=== PATIENT | male | born 1940 | race Caucasian/White ===

== ENCOUNTER → 2019-05-16 19:15 | Outpatient (ROUT) | payer MEDICARE, OTHER, SELFPAY ==
[2019-05-16 19:32] LABS: Bacteria Urine None Seen; RBC Urine None Seen (0-5/HPF)
[2019-05-16 19:39] LABS: Add Manual Diff / Slide Review NO; Basophils Absolute Auto 100 /uL (0-100); Basophils Percent Auto 0.6 % (0-2); Eosinophils Absolute Auto 300 /uL (0-450); Eosinophils Percent Auto 3.1 % (2-4); Hematocrit 41.1 % (41-53); Hemoglobin 13.8 g/dL (13.5-17.5); Lymphocytes Absolute Auto 2200 /uL (1100-4500); Lymphocytes Percent Auto 26.3 % (25-40); Mean Corpuscular HGB Conc 33.6 % (30-36); Mean Corpuscular Hemoglobin 29.9 PG (26-34); Monocytes Absolute Auto 700 /uL (0-900); Monocytes Percent Auto 8.7 % (3-14); Neutrophils Absolute Auto 5100 /uL (1500-7000); Neutrophils Percent Auto 61.3 % (50-75); Platelet Count 179 X10^3/uL (150-400); Red Blood Cell Count 4.62 X10^6/uL (4.5-5.9); Red Cell Distribution Width 14.9 % (11.6-14.8); White Blood Cell Count 8.4 X10^3/uL (4.5-11.0)
[2019-05-16 19:47] LABS: Alanine Aminotransferase 71 IU/L (21-72); Albumin 4.1 g/dL (3.5-5.0); Albumin Globulin Ratio 1.2 (1.0-2.8); Alkaline Phosphatase 65 U/L (38-126); Aspartate Aminotransferase 60 IU/L (17-59); Bilirubin Total 0.5 mg/dL (0.2-1.3); Blood Urea Nitrogen 14 mg/dL (9-20); Calcium 9.9 mg/dL (8.4-10.2); Carbon Dioxide 29 mmol/L (22-32); Chloride 102 mmol/L (98-107); Estimated Glomerular Filt Rate > 60.0 mL/min (>60); Globulin 3.3 g/dL (1.7-4.1); Glucose 109 mg/dL (80-110); HEMOLYSIS < 15 (0-50); Potassium 4.5 mmol/L (3.4-5.1); Sodium 139 mmol/L (137-145); Total Protein 7.4 g/dL (6.3-8.2)
[2019-05-16 19:50] LABS: Hemoglobin A1C% w Est Avg Glu 6.7 % (4.0-6.0)
[2019-05-16 19:57] LABS: Appearance Urine UA CLEAR; Bilirubin Urine UA NEGATIVE (NEGATIVE); Color Urine UA YELLOW; Glucose Urine UA NEGATIVE (Negative); Ketones Urine UA NEGATIVE (NEGATIVE); Leukocyte Esterase Urine UA NEGATIVE (NEGATIVE); Nitrite Urine UA NEGATIVE (Negative); Occult Blood Urine UA NEGATIVE (Negative); Protein Urine UA NEGATIVE (Negative); Urobilinogen Urine UA 0.2 E.U./dL (0.2); pH Urine UA 6.5 (4.5-8.0)
[2019-05-16 20:02] LABS: Culture Indicated Urine Cult Not Indicated; Squamous Epithelial Cell Urine 0-1 /HPF (0-5/HPF); WBC Urine 0-1/HPF (0-5/HPF)
[2019-05-16 20:11] LABS: Creatinine Urine Random 110.4 mg/dL
[2019-05-16 20:15] LABS: Microalbumi Creatinin Ratio Ur 16.3 ug/mg CR (<30); Microalbumin Urine Random 1.8 mg/dL (0-1.6)
[2019-05-16 20:17] LABS: TSH w/ Reflex to FT4 2.12 uIU/mL (0.47-4.68)
[2019-05-16 21:14] LABS: B Type Natriuretic Peptide < 100 (<100)
== END ==
PROVIDERS: Family Provider Internal Medicine; PCP Internal Medicine; Visit Provider Internal Medicine
DX: E21.0 Primary hyperparathyroidism (principal); R06.09 Other forms of dyspnea; E11.9 Type 2 diabetes mellitus without complications; I10 Essential (primary) hypertension; F33.9 Major depressive disorder, recurrent, unspecified
CPT/HCPCS: 80053; 81001; 82043; 82570; 83036; 83880; 84443; 85025

== ENCOUNTER → 2019-05-31 14:07 | Outpatient (CLI) | payer MEDICARE, OTHER, SELFPAY ==
--- NOTE | 2019-05-31 | DI.ECHO.S_ITS ---
[facility] +---------+ [facility] +---------+ : : [address] : [address] : : : : [id number] : : : : Phone: [phone] Echocardiogram Report + + :Name: EUGENIA BRANDON Study Date: 05/31/2019 Height: 69 in : :[facility] Exam Location: [facility] Weight: 250 lb : : Gender: Male BSA: 2.3 m2 : :: 1940 Age: 79 yrs BP: 122/72 mmHg: :Reason For Study: DYSPNEA : : Performed By: Dagoberto Post : :Referring: REBA JEFFERY L : + + Interpretation Summary Left ventricular systolic function is normal without focal wall motion abnormalities with the ejection fraction visually estimated to be 60-65% and appears slightly less dynamic compared to the previous study. Left ventricular wall thickness is borderline increased. Diastolic parameters suggest a relaxation abnormality of the left ventricle, consistent with probable normal filling pressures. The right ventricle is mildly dilated but systolic function is normal and appears slightly larger compared to the previous study. The right ventricular systolic pressure is estimated to be at least 29 mmHg based on an estimated right atrial pressure of 3 mm Hg, and is likely unchanged compared to the previous study. Both atria are normal in size and are unchanged compared to the previous study. There is no significant valvular heart disease. The ascending aorta is mildly enlarged but is unchanged compared to the previous study. Procedure: A two-dimensional transthoracic echocardiogram with color flow and Doppler was performed. The study quality was technically adequate. Comparison is made with the echocardiogram of 02/06/16. The patient was in normal sinus rhythm during the exam. The patient had occasional PVCs during the exam. Left Ventricle: The left ventricle is normal in size. Left ventricular wall thickness is borderline increased. Left ventricular systolic function is normal without focal wall motion abnormalities. The ejection fraction is estimated to be 60-65%. This is slightly less dynamic compared to the previous study. Diastolic parameters suggest a relaxation abnormality of the left ventricle, consistent with probable normal filling pressures. Right Ventricle: The right ventricle is mildly dilated. The right ventricular systolic function is normal. This is slightly larger compared to the previous study. Atria: Both atria are normal in size. This is unchanged compared to the previous study. The interatrial septum is intact with no evidence for an atrial septal defect. Mitral Valve: There is mild mitral annular calcification. The mitral valve is normal in structure and function. There is trace mitral regurgitation. Aortic Valve: The aortic valve is trileaflet. The aortic valve is slightly calcified. The aortic valve opens well. No aortic regurgitation is present. Tricuspid Valve: The tricuspid valve is normal in structure and function. There is trace tricuspid regurgitation. The right ventricular systolic pressure is estimated to be at least 29 mmHg based on an estimated right atrial pressure of 3 mm Hg. This is unchanged compared to the previous study. Pulmonic Valve: The pulmonic valve is not well visualized. There is trace pulmonic regurgitation. There is no significant valvular heart disease. Great Vessels: The aortic root is normal size. The ascending aorta is mildly enlarged. This is unchanged compared to the previous study. The pulmonary artery is normal size. The IVC is of normal diameter and collapses greater than 50% with a sniff. This suggests a low right atrial pressure of 3 mm Hg. Pericardium/ Pleura There is no pericardial effusion. There is no pleural effusion. MMode/2D Measurements & Calculations LVIDd: 5.5 cm LVOT diam: 2.5 cm LVIDs: 3.9 cm Ao root diam: 3.0 cm FS: 28.0 % Aortic Jxn: 2.5 cm EPSS: 0.60 cm asc Aorta Diam: 3.5 cm IVSd: 1.1 cm LVPWd: 1.0 cm LV hall. diameter/BSA (cm/m^2): 2.4 LV sys. diameter/BSA (cm/m^2): 1.7 LA dimension: 3.3 cm RA long axis: 5.5 cm LA A2 area: 21.1 cm2 RA area: 20.3 cm2 LA A4 area: 25.5 cm2 RA vol: 63.5 ml LA length (vol): 6.5 cm RA : 27.9 ml/m2 LA vol: 70.2 ml IVC diam: 1.2 cm LA vol index: 30.9 ml/m2 RVD1 (basal): 5.0 cm RVD2 (mid): 4.5 cm Doppler Measurements & Calculations Ao V2 max: 157.6 cm/sec LVOT Max Minesh: 115.8 cm/sec Ao V2 mean: 109.1 cm/sec LV V1 max P.4 mmHg Ao max P.9 mmHg LV V1 VTI: 21.0 cm Ao mean P.3 mmHg STANLEY(I,D): 3.8 cm2 Ao V2 VTI: 27.8 cm STANLEY(V,D): 3.7 cm2 sev ratio: 0.75 STANLEY indexed to BSA (cm^2/m^2): 1.7 MV E max minesh: 63.1 cm/sec TR max minesh: 256.9 cm/sec MV A max minesh: 85.2 cm/sec TR max P.4 mmHg MV E/A: 0.74 PA V2 max: 93.6 cm/sec Med Peak E' Minesh: 4.0 cm/sec PA V2 mean: 70.5 cm/sec E/E' med: 15.7 PA mean P.2 mmHg Lat Peak E' Minesh: 4.2 cm/sec PA pr(Accel): 36.6 mmHg E/E' lat: 14.9 PA Accel Time: 0.09 sec E/e' average: 15.3 MV dec time: 0.22 sec SV(LVOT): 106.5 ml Reading Physician:ARANZA
--- NOTE | 2019-05-31 | DI.RAD.S_ITS ---
PROCEDURE: XR CHEST 2V INDICATIONS: Dyspnea TECHNIQUE: 2 views of the chest were acquired. COMPARISON: [facility], CHEST 2 VIEW, 01/20/2018, 15:51. [facility], CHEST 1 VIEW, 06/22/2017, 15:58. FINDINGS: Surgical changes and devices: None. Lungs and pleura: Lungs are mildly edematous. No pleural effusions or pneumothorax. Mediastinum: Mediastinal contours are normal except for a moderately large hiatal hernia with internal air fluid level again seen behind the heart. Heart size is normal. Bones and chest wall: No suspicious bony abnormalities. Soft tissues appear unremarkable. IMPRESSION: Reduced inspiratory volume crowding bronchovascular markings. Suspect mild pulmonary edema. Moderately large hiatal hernia within the retrocardiac midline containing air-fluid level. Dictated by: Boo Hernandez M.D. on 05/31/2019 at 14:46 Approved by: Boo Hernandez M.D. on 05/31/2019 at 14:46
== END ==
PROVIDERS: PCP Internal Medicine; Visit Provider Internal Medicine
DX: R06.09 Other forms of dyspnea (principal); I77.89 Other specified disorders of arteries and arterioles; K44.9 Diaphragmatic hernia without obstruction or gangrene; G47.33 Obstructive sleep apnea (adult) (pediatric)
CPT/HCPCS: 71046; 93306

== ENCOUNTER → 2019-10-04 15:02 | Outpatient (CLI) | payer MEDICARE, OTHER, SELFPAY ==
--- NOTE | 2019-10-04 | DI.US.S_ITS ---
PROCEDURE: US ABDOMEN COMPLETE INDICATIONS: INTRA-ABDOMINAL AND PELVIC SWELLING, MASS AND LUMP TECHNIQUE: Real-time scanning was performed of the abdominal and retroperitoneal organs, with image documentation. COMPARISON: [facility], CT, ABDOMEN/PELVIS WITH CONTRAST, 06/22/2017, 16:39. FINDINGS: Liver: Liver is normal in size and demonstrates diffusely increased echotexture. Gallbladder: No gallstones. No gallbladder wall thickening, pericholecystic fluid or sonographic Sethi's sign. Biliary ducts: Intrahepatic bile ducts are non-dilated. Extrahepatic bile duct is obscured by overlying bowel gas. Pancreas: Pancreas is obscured by overlying bowel gas. Spleen: Spleen is normal in size and homogeneous in echotexture. Kidneys: Kidneys are normal in size and echotexture. Right kidney measures 11.4 cm long; left kidney measures 13.8 cm long. No hydronephrosis or nephrolithiasis. No solid masses. Aorta: Abdominal aorta is obscured by overlying bowel gas. Iliacs: Proximal common iliac arteries are obscured by overlying bowel gas. IVC: Intrahepatic inferior vena cava is patent. Miscellaneous: No free abdominal fluid. IMPRESSION: 1. Diffusely increased hepatic echotexture. This finding is most likely secondary to hepatic fatty infiltration although other hepatocellular disease may have a similar appearance. Recommend clinical correlation. 2. No mass is identified. 3. No free fluid. 4. Suboptimal examination. Pancreas, aorta, common iliac arteries are obscured by overlying bowel gas. Dictated by: Mariana Damon M.D. on 10/05/2019 at 9:07 Approved by: Mariana Damon M.D. on 10/05/2019 at 9:10
== END ==
PROVIDERS: PCP Internal Medicine; Visit Provider Internal Medicine
DX: R19.00 Intra-abdominal and pelvic swelling, mass and lump, unspecified site (principal)
CPT/HCPCS: 76700

== ENCOUNTER 2020-01-12 20:34 | Emergency (ER) | payer MEDICARE, OTHER, SELFPAY ==
[2020-01-12 20:15] VITALS: BP 148/89; PULSE 101; RESP 32; TEMP 37.9; O2SAT 93
--- NOTE | 2020-01-12 20:38 | DI.RAD.S_ITS ---
PROCEDURE: XR CHEST 1V INDICATIONS: fall, trauma, preop TECHNIQUE: One view of the chest was acquired. COMPARISON: [facility], CR, XR CHEST 2V, 05/31/2019, 14:19. FINDINGS: Surgical changes and devices: None. Lungs and pleura: Low lung volumes with scattered subsegmental atelectasis/scarring. . No pleural effusions or pneumothorax. Mediastinum: Mediastinal contours appear normal. Heart size is normal. Moderate hiatal hernia Bones and chest wall: No suspicious bony lesions. Overlying soft tissues appear unremarkable. IMPRESSION: Low lung volumes with scattered subsegmental atelectasis/scarring. Moderate hiatal hernia Dictated by: Aric Ellis M.D. on 01/12/2020 at 21:31 Approved by: Aric Ellis M.D. on 01/12/2020 at 21:33
--- NOTE | 2020-01-12 20:53 | ED.BACK ---
HPI - Back Pain/Injury General Chief Complaint: Fever Stated Complaint: Back pain Time Seen by Provider: 01/12/20 20:37 Source: patient Mode of arrival: EMS Limitations: no limitations History of Present Illness HPI Narrative: 79M former smoker with history of hypertension presents by EMS for an episode of back pain across his entire back this evening. He denies any injury, overuse. He states it was hurting him with any motion and improves with rest. He has had some nasal congestion and cough as well as fever is high as 101. He denies any exposures to known persons positive for COVID-19 but recently did travel. He denies nausea, vomiting or diarrhea. He denies dysuria, frequency or urgency. He denies any numbness, tingling or weakness of his lower extremities. He denies any trouble controlling bowel or bladder. Without treatment his back pain is all but gone by his arrival and he has no pain or difficulty moving from the ambulance cart to our isiah BEJARANO Complaint: back pain Onset (ago): hour(s) Duration: now resolved Similar Symptoms Previously: No Location: lumbar spine Severity: moderate Quality: aching Radiation: other Related Data Home Medications Medication Instructions Recorded Confirmed furosemide 20 mg PO QDAY #0 06/22/17 Allergies Allergy/AdvReac Type Severity Reaction Status Date / Time No Known Drug Allergies Allergy Verified 01/12/20 20:45 Review of Systems Constitutional Constitutional: Denies chills, Denies fatigue, Reports fever(s), Denies frequent falls, Denies lethargy and Denies weakness Eyes Eyes: Denies change in vision, Denies eye discharge, Denies irritation and Denies loss of vision ENT Ears, Nose, Mouth, and Throat: Denies change in voice, Denies dizziness, Denies neck pain, Denies sore throat and Denies throat swelling Cardiovascular Cardiovascular: Denies chest pain, Denies irregular heart rhythm, Denies lightheadedness, Denies palpitations, Denies dyspnea, Denies dyspnea on exertion and Denies orthopnea Respiratory Respiratory: Reports cough, Denies dyspnea, Denies dyspnea on exertion and Denies wheezing Gastrointestinal Gastrointestinal: Denies abdominal pain, Denies change in bowel habits, Denies diarrhea, Denies nausea and Denies vomiting Genitourinary Genitourinary: Denies hematuria, Denies flank pain, Denies urinary incontinence and Denies urinary urgency Musculoskeletal Musculoskeletal: Denies back pain, Denies muscle weakness, Denies neck pain, Denies numbness and Denies tingling Integumentary/Breasts Skin/Breast: Denies pruritus, Denies erythema, Denies rash and Denies wounds Neurologic Neurologic: Denies behavioral changes, Denies confusion, Denies dizziness, Denies frequent falls, Denies loss of vision, Denies numbness, Denies tingling and Denies weakness Psychiatric Psychiatric: Denies anxiety, Denies behavioral changes, Denies confusion, Denies depression, Denies homicidal ideation and Denies suicidal ideation Endocrine Endocrine: Denies fatigue, Denies flushing and Denies palpitations Hematologic/Lymphatic Hematologic/Lymphatic: Denies easy bruising Allergic/Immunologic Allergic/Immunologic: Denies urticaria, Denies throat swelling and Denies wheezing Patient History Social History Smoking Status: Former smoker Smoking Status: Former smoker alcohol intake frequency: 0-2 drinks per day Substance Use Type: does not use Exam Narrative Exam Narrative: GENERAL: []79 year old patient appears stated age. Well-nourished, well-developed patient, in mild distress. HEAD: Atraumatic. Normocephalic. EYES: Pupils equal round and reactive. Extraocular motions intact. No scleral icterus. No injection or drainage. ENT: Nose without bleeding, purulent drainage. Throat without erythema, tonsillar hypertrophy or exudate. Airway patent. NECK: Trachea midline. Non tender CARDIOVASCULAR: Regular rate and rhythm without murmurs, gallops, or rubs. RESPIRATORY: Clear to auscultation. Breath sounds equal bilaterally. No wheezes, rales, or rhonchi. GASTROINTESTINAL: Abdomen soft, non-tender, nondistended. EXTREMITIES: No edema or joint tenderness. BACK: Nontender without deformity or crepitance. No flank tenderness. No midline tenderness or stepoff. No rash, redness, warmth, or swelling. No saddle anesthesia. No LE weakness or tingling. B/L LE patellar reflexes normal and in tact. No foot drop NEURO: AOx3. SKIN: No rash or erythema of visible areas Initial Vital Signs Initial Vital Signs: Vital Signs Temperature 100.2 F H 01/12/20 20:15 Pulse Rate 101 H 01/12/20 20:15 Respiratory Rate 32 H 01/12/20 20:15 Blood Pressure 148/89 H 01/12/20 20:15 Pulse Oximetry 93 01/12/20 20:15 Course Orders Ordered: Discontinued Medications Sodium Chloride (Normal Saline 0.9%) 1,000 mls @ 1,000 mls/hr IV BOLUS ONE Stop: 01/12/20 21:36 Last Infusion: 01/12/20 23:59 Dose: 0 mls/hr Documented by: Admin: 01/12/20 21:15 Dose: 1,000 mls/hr Documented by: REYES Sodium Chloride (Normal Saline 0.9%) 1,000 mls @ 1,000 mls/hr IV BOLUS ONE Stop: 01/12/20 23:33 Last Infusion: 01/13/20 02:22 Dose: 0 mls/hr Documented by: Admin: 01/13/20 00:08 Dose: 1,000 mls/hr Documented by: REYES Vital Signs Vital signs: Vital Signs - 8 hr 01/12/20 23:33 01/13/20 01:17 01/13/20 02:17 Temperature 99.3 F Pulse Rate 82 80 79 Respiratory Rate 16 18 19 Blood Pressure [Left Arm] 137/77 138/67 138/67 Pulse Oximetry 91 91 97 MDM - Back Pain/Injury Lab Data Result diagrams: 01/12/20 20:45 01/12/20 20:45 Labs: Lab Results 01/12/20 01/12/20 01/12/20 Range/Units 20:45 20:45 20:45 WBC 11.1 H (4.5-11.0) X10^3/uL RBC 4.49 L (4.5-5.9) X10^6/uL Hgb 14.3 (13.5-17.5) g/dL Hct 41.9 (41-53) % MCV 93.3 (80-100) fL MCH 31.8 (26-34) PG MCHC 34.0 (30-36) % RDW 14.3 (11.6-14.8) % Plt Count 135 L (150-400) X10^3/uL Neut % (Auto) 81.4 H (50-75) % Lymph % (Auto) 9.6 L (25-40) % Cr[place] % (Auto) 7.4 (3-14) % Eos % (Auto) 1.2 L (2-4) % Baso % (Auto) 0.4 (0-2) % Neut # (Auto) 9000 H (6465-7163) /uL Lymph # (Auto) 1100 (6324-3128) /uL Cr[place]enden # (Auto) 800 (0-900) /uL Eos # (Auto) 100 (0-450) /uL Baso # (Auto) 0 (0-100) /uL PT 12.4 (10.1-12.7) SECONDS INR 1.1 (0.9-1.3) Sodium 137 (137-145) mmol/L Potassium 4.2 (3.4-5.1) mmol/L Chloride 103 (98-107) mmol/L Carbon Dioxide 24 (22-32) mmol/L BUN 13 (9-20) mg/dL Creatinine 0.70 (0.66-1.25) mg/dL Estimated GFR > 60.0 (>60) mL/min BUN/Creatinine Ratio 18.6 (6-22) Glucose 145 H (80-110) mg/dL Lactate (0.7-2.1) mmol/L Calcium 9.5 (8.4-10.2) mg/dL Total Creatine Kinase 112 (55-170) U/L CK-MB (CK-2) 1.44 (<2.37) ng/mL CK-MB (CK-2) Rel Index 1.3 L (1.5-5.0) % Troponin I < 0.012 (0.01-0.034) ng/mL C-Reactive Protein < 0.5 (<1.0) mg/dL NT-Pro-B Natriuret Pep 113 (<450) pg/mL Procalcitonin (<0.5) ng/mL Urine Color Urine Appearance Urine pH (4.5-8.0) Ur Specific Lovely (1.000-1.035) Urine Protein (Negative) Urine Glucose (UA) (Negative) g/dL Urine Ketones (NEGATIVE) Urine Occult Blood (Negative) Urine Nitrate (Negative) Urine Bilirubin (NEGATIVE) Urine Urobilinogen (0.2) E.U./dL Ur Leukocyte Esterase (NEGATIVE) Urine RBC (0-5/HPF) Urine WBC (0-5/HPF) Urine Bacteria (None) Urine Sperm Ur Culture Indicated? Influenza A (RT-PCR) (NEGATIVE) Influenza B (RT-PCR) (NEGATIVE) 01/12/20 01/12/20 01/12/20 Range/Units 20:45 20:45 20:45 WBC (4.5-11.0) X10^3/uL RBC (4.5-5.9) X10^6/uL Hgb (13.5-17.5) g/dL Hct (41-53) % MCV (80-100) fL MCH (26-34) PG MCHC (30-36) % RDW (11.6-14.8) % Plt Count (150-400) X10^3/uL Neut % (Auto) (50-75) % Lymph % (Auto) (25-40) % Crittenden % (Auto) (3-14) % Eos % (Auto) (2-4) % Baso % (Auto) (0-2) % Neut # (Auto) (9876-7700) /uL Lymph # (Auto) (5690-3083) /uL Crittenden # (Auto) (0-900) /uL Eos # (Auto) (0-450) /uL Baso # (Auto) (0-100) /uL PT (10.1-12.7) SECONDS INR (0.9-1.3) Sodium (137-145) mmol/L Potassium (3.4-5.1) mmol/L Chloride (98-107) mmol/L Carbon Dioxide (22-32) mmol/L BUN (9-20) mg/dL Creatinine (0.66-1.25) mg/dL Estimated GFR (>60) mL/min BUN/Creatinine Ratio (6-22) Glucose (80-110) mg/dL Lactate 2.7 H (0.7-2.1) mmol/L Calcium (8.4-10.2) mg/dL Total Creatine Kinase (55-170) U/L CK-MB (CK-2) (<2.37) ng/mL CK-MB (CK-2) Rel Index (1.5-5.0) % Troponin I (0.01-0.034) ng/mL C-Reactive Protein (<1.0) mg/dL NT-Pro-B Natriuret Pep (<450) pg/mL Procalcitonin < 0.05 (<0.5) ng/mL Urine Color Urine Appearance Urine pH (4.5-8.0) Ur Specific Lovely (1.000-1.035) Urine Protein (Negative) Urine Glucose (UA) (Negative) g/dL Urine Ketones (NEGATIVE) Urine Occult Blood (Negative) Urine Nitrate (Negative) Urine Bilirubin (NEGATIVE) Urine Urobilinogen (0.2) E.U./dL Ur Leukocyte Esterase (NEGATIVE) Urine RBC (0-5/HPF) Urine WBC (0-5/HPF) Urine Bacteria (None) Urine Sperm Ur Culture Indicated? Influenza A (RT-PCR) Flu a negative (NEGATIVE) Influenza B (RT-PCR) Flu b negative (NEGATIVE) 01/12/20 01/12/20 Range/Units 22:46 23:43 WBC (4.5-11.0) X10^3/uL RBC (4.5-5.9) X10^6/uL Hgb (13.5-17.5) g/dL Hct (41-53) % MCV (80-100) fL MCH (26-34) PG MCHC (30-36) % RDW (11.6-14.8) % Plt Count (150-400) X10^3/uL Neut % (Auto) (50-75) % Lymph % (Auto) (25-40) % Crittenden % (Auto) (3-14) % Eos % (Auto) (2-4) % Baso % (Auto) (0-2) % Neut # (Auto) (8872-4308) /uL Lymph # (Auto) (9978-8451) /uL Crittenden # (Auto) (0-900) /uL Eos # (Auto) (0-450) /uL Baso # (Auto) (0-100) /uL PT (10.1-12.7) SECONDS INR (0.9-1.3) Sodium (137-145) mmol/L Potassium (3.4-5.1) mmol/L Chloride (98-107) mmol/L Carbon Dioxide (22-32) mmol/L BUN (9-20) mg/dL Creatinine (0.66-1.25) mg/dL Estimated GFR (>60) mL/min BUN/Creatinine Ratio (6-22) Glucose (80-110) mg/dL Lactate 2.1 (0.7-2.1) mmol/L Calcium (8.4-10.2) mg/dL Total Creatine Kinase (55-170) U/L CK-MB (CK-2) (<2.37) ng/mL CK-MB (CK-2) Rel Index (1.5-5.0) % Troponin I (0.01-0.034) ng/mL C-Reactive Protein (<1.0) mg/dL NT-Pro-B Natriuret Pep (<450) pg/mL Procalcitonin (<0.5) ng/mL Urine Color Yellow Urine Appearance Clear Urine pH 6.0 (4.5-8.0) Ur Specific Lovely 1.025 (1.000-1.035) Urine Protein Negative (Negative) Urine Glucose (UA) Negative (Negative) g/dL Urine Ketones Negative (NEGATIVE) Urine Occult Blood Negative (Negative) Urine Nitrate Negative (Negative) Urine Bilirubin Negative (NEGATIVE) Urine Urobilinogen 0.2 (0.2) E.U./dL Ur Leukocyte Esterase Negative (NEGATIVE) Urine RBC None seen (0-5/HPF) Urine WBC None seen (0-5/HPF) Urine Bacteria None seen (None) Urine Sperm Few Ur Culture Indicated? Cult not indicated Influenza A (RT-PCR) (NEGATIVE) Influenza B (RT-PCR) (NEGATIVE) Imaging Data Chest x-ray: Radiologist's Impression: Jordi Mckeon 79 M 1940 [place] [address] XRay Report Signed Patient: Jordi Mckeon [facility]#: [id number] : 1Acct:[id number] Age/Sex: 79 / MDate of Service: 01/12/20 Loc: ED Accession Number: [id number] Procedure: XR chest 1V Ordering Provider: Escobar Cohen D.O. PROCEDURE: XR CHEST 1V INDICATIONS: fall, trauma, preop TECHNIQUE: One view of the chest was acquired. COMPARISON: [facility], , XR CHEST 2V, 05/31/2019, 14:19. FINDINGS: Surgical changes and devices: None. Lungs and pleura: Low lung volumes with scattered subsegmental atelectasis/scarring. . No pleural effusions or pneumothorax. Mediastinum: Mediastinal contours appear normal. Heart size is normal. Moderate hiatal hernia Bones and chest wall: No suspicious bony lesions. Overlying soft tissues appear unremarkable. IMPRESSION: Low lung volumes with scattered subsegmental atelectasis/scarring. Moderate hiatal hernia Dictated by: Aric Ellis M.D. on 01/12/2020 at 21:31 Approved by: Aric Ellis M.D. on 01/12/2020 at 21:33 [facility] Narrative Medical decision making narrative: 79M called EMS due to an episode of back pain which had all but disappeared prior to his arrival and he had a painless exam, ambulates through department and easily transfers himself to ED cart. He had a fever in the absence of other symptoms. Multiple etiologies of back pain considered including; Epidural abscess, cauda equina, mass occupying lesion, and other considered COVID-19 is considered but exam, labs and imaging with suggest this is likely though he will be encouraged to use CDC recommended precautions at home. Initial lactate 2.7 and improves after fluids. Patient feeling asymptomatic for nearly all of visit and wants to go home. We were able to convince him to stay until a repeat lactate is performed which unfortunately means we are too late to use a cab service. He has been given return precautions and had his questions answered to his apparent satisfaction. Discharge Plan Departure Patient Disposition: Home Clinical Impression: Fever of unknown origin Back pain Qualifiers: Back pain location: low back pain Chronicity: unspecified Back pain laterality: bilateral Sciatica presence: without sciatica Qualified Code(s): M54.5 - Low back pain Discharge Date/Time: 01/13/20 06:44 Instructions: DI for Fever (Symptom) -- Adult Activity Restrictions/Additional Instructions: *You have been diagnosed with [ back pain resolved, fever ] *What to do: *Take medications as directed *Follow up with your primary care provider in 2-3 days, call for an appointment. Let them know you were seen in the Emergency Department and that we ask that you be seen in follow up *Return to ER if you should have any new, worsening or concerning symptoms, such as [persistent fever, increasing cough, shortness of breath, loss of control of bowel or bladder, footdrop or other bothersome symptoms ] Prescriptions: No Action furosemide 20 MG tablet 20 mg PO QDAY Qty: 0 RF: 0 Referrals: Blanca Suh MD [Primary Care Provider] -
[2020-01-12 20:55] LABS: Add Manual Diff / Slide Review NO; Basophils Absolute Auto 0 /uL (0-100); Basophils Percent Auto 0.4 % (0-2); Eosinophils Absolute Auto 100 /uL (0-450); Eosinophils Percent Auto 1.2 % (2-4); Hematocrit 41.9 % (41-53); Hemoglobin 14.3 g/dL (13.5-17.5); Lymphocytes Absolute Auto 1100 /uL (1100-4500); Lymphocytes Percent Auto 9.6 % (25-40); Mean Corpuscular Hemoglobin 31.8 PG (26-34); Mean Corpuscular Volume 93.3 fL (80-100); Monocytes Absolute Auto 800 /uL (0-900); Monocytes Percent Auto 7.4 % (3-14); Neutrophils Absolute Auto 9000 /uL (1500-7000); Neutrophils Percent Auto 81.4 % (50-75); Platelet Count 135 X10^3/uL (150-400); Red Blood Cell Count 4.49 X10^6/uL (4.5-5.9); Red Cell Distribution Width 14.3 % (11.6-14.8); White Blood Cell Count 11.1 X10^3/uL (4.5-11.0)
[2020-01-12 21:05] LABS: INR 1.1 (0.9-1.3); Prothrombin Time 12.4 SECONDS (10.1-12.7)
[2020-01-12 21:09] LABS: Lactate (Lactic Acid) 2.7 mmol/L (0.7-2.1)
[2020-01-12 21:10] LABS: BUN Creatinine Ratio 18.6 (6-22); Blood Urea Nitrogen 13 mg/dL (9-20); Calcium 9.5 mg/dL (8.4-10.2); Carbon Dioxide 24 mmol/L (22-32); Chloride 103 mmol/L (98-107); Creatine Kinase 112 U/L (55-170); Estimated Glomerular Filt Rate > 60.0 mL/min (>60); Glucose 145 mg/dL (80-110); Potassium 4.2 mmol/L (3.4-5.1); Sodium 137 mmol/L (137-145)
[2020-01-12 21:13] LABS: C-Reactive Protein Quant < 0.5 mg/dL (<1.0)
[2020-01-12] MEDS: SODIUM CHLORIDE 0.9% 1,000 ML 1000 ML IV (21:15)
[2020-01-12 21:22] LABS: NT-proBNP (BNP-Adult 18+) 113 pg/mL (<450); Troponin I < 0.012 ng/mL (0.01-0.034)
[2020-01-12 21:24] LABS: CKMB % Relative Index 1.3 % (1.5-5.0); Creatine Kinase MB 1.44 ng/mL (<2.37); HEMOLYSIS 18 (0-50)
[2020-01-12 21:27] LABS: Influenza A - CEPHEID Flu A NEGATIVE (NEGATIVE); Influenza B - CEPHEID Flu B NEGATIVE (NEGATIVE)
[2020-01-12 21:30] LABS: Procalcitonin < 0.05 ng/mL (<0.5)
[2020-01-12 22:50] LABS: Bacteria Urine None Seen; RBC Urine None Seen (0-5/HPF); WBC Urine None Seen (0-5/HPF)
[2020-01-12 22:50] LABS: Reflexed Lactate in 2 Hours Y
[2020-01-12 22:52] LABS: Appearance Urine UA CLEAR; Bilirubin Urine UA NEGATIVE (NEGATIVE); Color Urine UA YELLOW; Glucose Urine UA NEGATIVE (Negative); Ketones Urine UA NEGATIVE (NEGATIVE); Leukocyte Esterase Urine UA NEGATIVE (NEGATIVE); Nitrite Urine UA NEGATIVE (Negative); Occult Blood Urine UA NEGATIVE (Negative); Protein Urine UA NEGATIVE (Negative); Specific Gravity Urine UA 1.025 (1.000-1.035); Urobilinogen Urine UA 0.2 E.U./dL (0.2)
[2020-01-12 23:01] LABS: Culture Indicated Urine Cult Not Indicated; Sperm Urine FEW
[2020-01-12 23:33] VITALS: BP 137/77; PULSE 82; RESP 16; TEMP 37.4; O2SAT 91
[2020-01-13] LABS: Lactate 2HR (Lactic Acid Rflx) 2.1 mmol/L (0.7-2.1)
[2020-01-13] MEDS: SODIUM CHLORIDE 0.9% 1,000 ML 1000 ML IV (00:08)
[2020-01-13 01:17] VITALS: BP 138/67; PULSE 80; RESP 18; O2SAT 91
[2020-01-13 02:17] VITALS: BP 138/67; PULSE 79; RESP 19; O2SAT 97
[2020-01-13 06:43] VITALS: BP 134/69; PULSE 74; RESP 18; TEMP 36.6; O2SAT 94
[2020-01-15 12:04] LABS: COVID19 Sendout Not Detected (Not Detected)
== END 2020-01-13 06:44 | disposition home or self-care (01) ==
PROVIDERS: Emergency Provider Emergency Medicine; PCP Internal Medicine
DX: R50.9 Fever, unspecified (principal); M54.5 Low back pain; I10 Essential (primary) hypertension
CPT/HCPCS: 36415; 71045; 80048; 81001; 82550; 82553; 83605; 83880; 84145; 84484; 85025; 85610; 86140; 87040; 87502; 87635; 96360; 96361; 99284

== ENCOUNTER → 2020-04-19 11:59 | Outpatient (CLI) | payer MEDICARE, OTHER, SELFPAY ==
[2020-04-19 13:17] LABS: Add Manual Diff / Slide Review NO; Basophils Absolute Auto 0 /uL (0-100); Basophils Percent Auto 0.5 % (0-2); Eosinophils Absolute Auto 200 /uL (0-450); Hematocrit 41.8 % (41-53); Hemoglobin 14.4 g/dL (13.5-17.5); Lymphocytes Absolute Auto 2100 /uL (1100-4500); Lymphocytes Percent Auto 29.5 % (25-40); Mean Corpuscular HGB Conc 34.4 % (30-36); Mean Corpuscular Hemoglobin 32.6 PG (26-34); Mean Corpuscular Volume 94.7 fL (80-100); Monocytes Absolute Auto 600 /uL (0-900); Monocytes Percent Auto 8.7 % (3-14); Neutrophils Absolute Auto 4100 /uL (1500-7000); Neutrophils Percent Auto 58.3 % (50-75); Platelet Count 165 X10^3/uL (150-400); Red Blood Cell Count 4.41 X10^6/uL (4.5-5.9); Red Cell Distribution Width 14.2 % (11.6-14.8); White Blood Cell Count 7.1 X10^3/uL (4.5-11.0)
[2020-04-19 13:33] LABS: Alanine Aminotransferase 65 IU/L (<50); Albumin 4.3 g/dL (3.5-5.0); Albumin Globulin Ratio 1.3 (1.0-2.8); Alkaline Phosphatase 61 U/L (38-126); Aspartate Aminotransferase 67 IU/L (17-59); Bilirubin Total 0.9 mg/dL (0.2-1.3); Bilirubin Unconjugated 0.8 mg/dL (0.0-1.1); Globulin 3.2 g/dL (1.7-4.1); HEMOLYSIS < 15 (0-50); Total Protein 7.5 g/dL (6.3-8.2)
[2020-04-19 13:40] LABS: NT-proBNP (BNP-Adult 18+) 208 pg/mL (<450)
== END ==
PROVIDERS: PCP Internal Medicine; Referring Provider Physician Assistant; Visit Provider Physician Assistant
DX: L40.0 Psoriasis vulgaris (principal)
CPT/HCPCS: 36415; 80076; 83880; 85025

== ENCOUNTER → 2020-10-08 11:25 | Outpatient (CLI) | payer MEDICARE, OTHER, SELFPAY ==
[2020-10-08 12:27] LABS: Hematocrit 39.5 % (41-53); Hemoglobin 13.1 g/dL (13.5-17.5); Mean Corpuscular HGB Conc 33.2 % (30-36); Mean Corpuscular Volume 87.3 fL (80-100); Platelet Count 153 X10^3/uL (150-400); Red Blood Cell Count 4.52 X10^6/uL (4.5-5.9); Red Cell Distribution Width 13.6 % (11.6-14.8); White Blood Cell Count 7.3 X10^3/uL (4.5-11.0)
[2020-10-08 12:37] LABS: Neutrophils Absolute Manual 4818 /uL (3000-5900); RBC Morphology Normal Morphology; Total Cells Counted 100
[2020-10-08 12:41] LABS: Cholesterol 133 mg/dL (140-199); HDL Cholesterol 31 mg/dL (40-60); LDL Cholesterol Calculated 54 mg/dL (<100); Triglycerides 242 mg/dL (35-150)
== END ==
PROVIDERS: PCP Internal Medicine; Referring Provider Internal Medicine; Visit Provider Internal Medicine
DX: E78.5 Hyperlipidemia, unspecified (principal); D50.9 Iron deficiency anemia, unspecified; R06.00 Dyspnea, unspecified
CPT/HCPCS: 36415; 80061; 85025

== ENCOUNTER → 2020-11-08 18:56 | Outpatient (ROUT) | payer MEDICARE, OTHER, SELFPAY ==
[2020-11-08 19:46] LABS: Alanine Aminotransferase 53 IU/L (<50); Albumin 4.4 g/dL (3.5-5.0); Albumin Globulin Ratio 1.5 (1.0-2.8); Alkaline Phosphatase 65 U/L (38-126); Aspartate Aminotransferase 51 IU/L (17-59); BUN Creatinine Ratio 16.7 (6-22); Bilirubin Total 0.6 mg/dL (0.2-1.3); Blood Urea Nitrogen 12 mg/dL (9-20); Calcium 9.6 mg/dL (8.4-10.2); Carbon Dioxide 29 mmol/L (22-32); Chloride 99 mmol/L (98-107); Estimated Glomerular Filt Rate > 60.0 mL/min (>60); Gamma Glutamyl Transpeptidase 76 U/L (15-73); Glucose 245 mg/dL (80-110); HEMOLYSIS < 15 (0-50); Potassium 4.1 mmol/L (3.4-5.1); Sodium 137 mmol/L (137-145); Total Protein 7.4 g/dL (6.3-8.2)
[2020-11-08 19:52] LABS: NT-proBNP (BNP-Adult 18+) 138 pg/mL (<450)
[2020-11-08 20:18] LABS: Ferritin 12 ng/mL (18-464)
== END ==
PROVIDERS: PCP Internal Medicine; Visit Provider Student in an Organized Health Care Education/Training Program
DX: E11.9 Type 2 diabetes mellitus without complications (principal); R74.01 Elevation of levels of liver transaminase levels; D50.9 Iron deficiency anemia, unspecified; I50.32 Chronic diastolic (congestive) heart failure; R06.00 Dyspnea, unspecified
CPT/HCPCS: 80053; 82728; 82977; 83880

== ENCOUNTER → 2020-11-20 09:22 | Outpatient (CLI) | payer MEDICARE, OTHER, SELFPAY ==
[2020-11-20 11:25] LABS: COVID19 -Nasal RAPID Negative (Negative)
== END ==
PROVIDERS: PCP Internal Medicine; Visit Provider Surgery
DX: Z20.822 Contact with and (suspected) exposure to COVID-19 (principal)
CPT/HCPCS: 87635; C9803

== ENCOUNTER 2020-11-21 13:14 | Day surgery (SDC) | payer MEDICARE, OTHER, SELFPAY ==
[2020-11-21] VITALS (8 sets, daily range): BP systolic 109–129; BP diastolic 65–83; PULSE 64–70; RESP 8–18; TEMP 36.7–37.2; O2SAT 92–95; BMI 36.1
[2020-11-21] MEDS: LACTATED RINGERS 1,000 ML 200 ML IV (13:27)
--- NOTE | 2020-11-21 14:42 | PM.PREOP ---
Pre-operative Note Interval Note History & Physical reviewed/Exam performed by Physician: Yes Changes to H&P: No
[2020-11-21] MEDS: MIDAZOLAM 5 MG/5 ML VIAL IV (15:09)
--- NOTE | 2020-11-21 15:09 | PM.OP.ENDO ---
Operative Date/Time/Diagnoses Date of procedure: 11/21/20 Time of procedure: 15:09 Pre-op diagnosis: GI bleed Post-op diagnosis: other (diverticulosis) Procedure & Clinicians Study performed: colonoscopy Same procedure as scheduled: Yes Indications: 80M with blood per rectum here for colonoscopy Surgeon: Yuri Turner Procedure Notes Procedure in detail: Medications: Conscious sedation using 4mg IV midazolam and 100mcg IV of fentanyl The history and physical was performed/updated and the patient is ASA class is 2. The procedure was discussed in detail with the patient. Potential risks complications including infection, bleeding, missed diagnosis, perforation, need for surgery, and were explained. Their questions were answered and informed consent was obtained. Patient was brought to the procedure room and placed standard monitoring equipment. The patient's vital signs were monitored continuously throughout the entire procedure. Prior to starting time-out was performed. The patient was placed in the left lateral recumbent position. Procedural sedation was administered. Examination began with a thorough inspection of the perianal area there was no evidence of fissures, fistulae, external hemorrhoids or cutaneous malignancy. The colonoscopy scope was then placed into the anal canal and was advanced to the cecum, which was identified by the ileocecal valve, the appendiceal orifice and the confluence of the taenia. The scope was then slowly withdrawn examining colon thoroughly in all directions, irrigating it of any residual stool. No masses polyps Stearns diverticulosis No active bleeding The patient tolerated the procedure well. They will be discharged once criteria are met. The prep was of good/excellent quality. The withdrawl time was 6 minutes. The sedation time was 18 minutes. Findings: diverticulosis Specimen(s): none sent Complications: none Impression: Diverticulosis Post-procedure Recommendations: High fiber diet Disposition: same day surgery
[2020-11-21] MEDS: fentaNYL 250 MCG/5 ML INJ IV (15:14)
== END 2020-11-21 16:03 | disposition home or self-care (01) ==
PROVIDERS: PCP Internal Medicine; Referring Provider Internal Medicine; Visit Provider Surgery
PROC: 0DJD8ZZ Inspection of Lower Intestinal Tract, Via Natural or Artificial Opening Endoscopic (ICD-10-PCS; CPT 45378; principal; 2020-11-21 14:30)
DX: K57.30 Diverticulosis of large intestine without perforation or abscess without bleeding (principal); Z80.0 Family history of malignant neoplasm of digestive organs; K21.9 Gastro-esophageal reflux disease without esophagitis; D64.9 Anemia, unspecified; I50.9 Heart failure, unspecified
CPT/HCPCS: 45378; 99152; J2250; J3010

== ENCOUNTER → 2020-11-22 12:52 | Outpatient (CLI) | payer MEDICARE, OTHER, SELFPAY ==
--- NOTE | 2020-11-22 | DI.RAD.S_ITS ---
PROCEDURE: FL BARIUM SWALLOW W SPEECH INDICATIONS: Dysphagia, unspecified COMPARISON: TECHNIQUE: Examination was conducted in conjunction with speech pathology per standard protocol. In the lateral projection, filming was performed of the patient swallowing. AP projection filming may also be performed with patient swallowing. COMPARISON: [facility], BARIUM SWALLOW WITH SPEECH, 07/07/2016, 9:43. [facility], BARIUM SWALLOW, 12/05/2010, 10:49. FINDINGS: Function: The oral preparatory phase appears normal, with proper containment. The subsequent oral propulsive phase, pharyngeal phase, and esophageal phase of swallowing also appear normal with all proffered substances. No laryngotracheal penetration or aspiration. No pathologic vallecular pooling. Morphology: No cricopharyngeal bar is identified. No cervical esophageal webs. No Zenker's diverticulum. No strictures. IMPRESSION: A single episode of anterior penetration noted at initiation of the study but thereafter no abnormality was found. Anatomic Nan the esophagus is in normal position and the epiglottis is relatively low lying but shows normal mobility. Please also refer to the dedicated speech therapy swallowing evaluation report which will be independently generated. Dictated by: Boo Hernandez M.D. on 11/22/2020 at 15:37 Approved by: Boo Hernandez M.D. on 11/22/2020 at 15:38
--- NOTE | 2020-11-22 16:38 | ST.SWALLOW ---
Visit Care Team Role Provider Type Blanca Suh MD Attending Provider Non-Staff Primary Care Provider Referring Provider Specialty: Internal Medicine Address: [address] [place] [address], [id number] Email: [email or web address] Modified Barium Swallow Study STRUCTURES ASSEMBLER Modified Barium Swallow Study Start: 11/22/20 15:23 Freq: Status: Active Protocol: Document 11/22/20 15:23 LNK (Rec: 11/22/20 16:37 LNK [id number]) Modified Barium Swallow Study Total Time Visit Start Time 13:30 Visit Stop Time 14:15 Total Visit Minutes [address] Moore Reason for Referral dysphagia Setting Setting Outpatient Care Patient Information Identification Type Name,Date of Patient History Pt reported that he has been having difficulty with swallowing, especially nuts with skins, crackers and liquids. He stated that foods get stuck in the back of his throat and he needs to cough them out and then swallow. H noted that when he is in his recliner having a snack, he chokes the most. This STRUCTURES ASSEMBLER encouraged the pt to sit upright any time he is going to eat anything. Pt reported he has a large hiatal hernia and some GERD. Subjective Observations Pt was seated in the fluoroscopy chair. The procedure and instructions were provided to the pt, who indicated he understood and agreed to proceed. Patient Positioning Position View Lateral Imaging Lateral View Textures Administered Trials Presented Thin Liquid via Spoon,Thin Liquid via Cup,[place] Liquid via Spoon,[place] Liquid via Cup,Pudding Thick Liquid via Spoon,Regular Textures Oral Phase Source: MBSIMP (TM) (C) Bolus Specific Scoring Grid Lip Closure WFL Tongue Control During Bolus Hold WFL Bolus Prep/Mastication Mild Impairment Bolus Transport/Lingual Motion Mild Impairment A/P Lingual Propulsion Delay No Oral Residue Minimal Impairment Nasal Regurgitation No Additional Oral Phase Observations Pt is missing all but one upper tooth and several lower molars. He reports that he usually has no difficulty chewing. He said he needs to chew for a long time. At times he will take too big of a bite. Diadochokineses and OM structures were oserved to be WFL Pharyngeal Phase Source: MBSIMP (TM) (C) Bolus Specific Scoring Grid Delayed Initiation of Pharyngeal Swallow Yes: premature spillage to the valeculla and the pyriform sinuses pre-swallow Soft Palate Elevation WFL Tongue Base Strength/Range of Motion Minimal Impairment Residue Along the Tongue Base No Laryngeal Elevation Mild Impairment Anterior Hyoid Movement Mild Impairment Epiglottic Range of Motion Minimal Impairment Vallecular Residue Yes: evident throughout assessment Clearance of Vallecular Residue Mild Impairment Laryngeal Vestibular Closure Minimal Impairment Pharyngeal Stripping Wave Mild Impairment Posterior Pharyngeal Wall Residue No Upper Esophageal Sphincter Opening WFL Residue in the Pyriform Sinuses trace to minimal Esophageal Clearance Upright Position WFL Pharyngoesophageal Backflow Observed No Additional Pharyngeal Phase Observations Pt demonstrated delayed swallow response with premature spillage to the pyriform sinuses before swallow. Laryngeal elevation and movement of the hyoid demonstrated a mild reduction in movement; however the epiglottis was observed to invert and seal the laryngeal vestibule. Flash penetration occurred on the initial teaspoonfull, which is considered normal by MBSImp standards. No additional penetration or aspiration was observed. No cough/choke observed. A/P View Esophageal Observations Esophageal Function Lateral view of esophagus was not obtained Clinical Impressions Dysphagia Type Minimal to mild oropharyngeal dysphagia Findings Pt presented with a minimal to mild oropharyngeal dysphagia characterized by many missing teeth and reduced mastication efficiency. Additionally, his swallow was mildly delayed with valecullar pooling. Flash penetration x1 with no aspiration observed. Epiglottis inversion with laryngeal seal was noted during each trial. The pt reported that he has coughed/ choked on foods such as nuts, popcorn, crackers, etc. He also reported that he is sitting reclined in his chair when he has snacks. It is likely that, as sitting in an unsafe position (reclined) with foods that are hard to completely masticate, his risk for aspiration increases. That would also be true for liquids. He may not be attending to swallowing as he may be distracted by conversation and or other things within his environment (i.e., TV). This was discussed with the pt at length following the MBS. It was suggested that any time that he eats, he should sit in a more upright position and/ or put his recliner upright. Rehabilitation Potential Good Patient Appropriate for Therapy Yes: F/U x2-3 for education and safe swallow strategies Recommendations Diet Liquids Order Thin Diet Order Regular Medication Recommendation As Tolerated Aspiration Precautions Recommended Precautions Upright at 90 Degrees Treatment Plan Therapy Recommendations Outpatient Speech Therapy Compensatory Strategies Recommendations Sitting Upright (90 deg)
== END ==
PROVIDERS: PCP Internal Medicine; Referring Provider Internal Medicine; Visit Provider Internal Medicine
DX: R13.10 Dysphagia, unspecified (principal)
CPT/HCPCS: 74230; 92611

== ENCOUNTER → 2021-07-18 11:22 | Outpatient (CLI) | payer MEDICARE, OTHER, SELFPAY ==
--- NOTE | 2021-07-18 | DI.RAD.S_ITS ---
PROCEDURE: XR SHOULDER RT MIN 2V INDICATIONS: Pain in right shoulder TECHNIQUE: 3 views of the shoulder were acquired. COMPARISON: None. FINDINGS: Bones: No fractures or dislocations. No suspicious bony lesions. Visualized ribs appear intact. 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 Soft tissues: No suspicious soft tissue calcifications. IMPRESSION: Mild glenohumeral and acromioclavicular joint osteoarthritis. Dictated by: Suzy Jarrett MD, PhD on 07/18/2021 at 15:15 Approved by: Suzy Jarrett MD, PhD on 07/18/2021 at 15:15
== END ==
PROVIDERS: PCP Student in an Organized Health Care Education/Training Program; Referring Provider Student in an Organized Health Care Education/Training Program; Visit Provider Student in an Organized Health Care Education/Training Program
DX: M25.511 Pain in right shoulder (principal); M19.011 Primary osteoarthritis, right shoulder
CPT/HCPCS: 73030

== ENCOUNTER 2021-09-12 12:56 | Emergency (ER) | payer MEDICARE, OTHER, SELFPAY ==
[2021-09-12 13:44] VITALS: BP 130/63; PULSE 82; RESP 24; TEMP 36.3; O2SAT 94; BMI 36.9
[2021-09-12 14:06] LABS: COVID19 -Nasal RAPID Negative (Negative)
--- NOTE | 2021-09-12 14:31 | ED.RECABL ---
HPI - Recheck/Abnormal Lab/Rx General Chief Complaint: Recheck/Abnormal Lab/Rx Stated Complaint: Caregiver wants him tested for Covid Time Seen by Provider: 09/12/21 14:31 Source: patient Mode of arrival: Ambulatory Limitations: no limitations History of Present Illness HPI narrative: 81-year-old male. Is fully vaccinated with the booster from COVID-19. Was at his nephew's house on Wednesday morning in [place]. Drove home. Talked with his nephew today. His nephew told him that over the past week he has tested positive for COVID. The patient has no symptoms. 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 He was told to come to the emergency department for testing. Related Data Home Medications Medication Instructions Recorded Confirmed furosemide 20 mg tablet 20 mg PO QDAY #0 06/22/17 11/21/20 atorvastatin 40 mg tablet 40 mg PO DAILY 11/13/20 11/21/20 donepezil 10 mg tablet 10 mg PO DAILY 11/13/20 11/21/20 ferrous sulfate 325 mg (65 mg 325 mg PO DAILY 11/13/20 11/21/20 iron) tablet (Feosol) fluoxetine 20 mg capsule 20 mg PO DAILY 11/13/20 11/21/20 losartan 50 mg tablet 50 mg PO DAILY 11/13/20 11/21/20 omeprazole 20 mg capsule,delayed 20 mg PO BID 11/13/20 11/21/20 release tamsulosin 0.4 mg capsule 0.4 mg PO DAILY 11/13/20 11/21/20 metformin 500 mg tablet 1,000 mg PO DAILY 11/21/20 11/21/20 Allergies Allergy/AdvReac Type Severity Reaction Status Date / Time No Known Drug Allergies Allergy Verified 11/21/20 13:27 Review of Systems Constitutional Constitutional: Denies fatigue and Denies headache(s) ENT Ears, Nose, Mouth, and Throat: Denies headache(s) Cardiovascular Cardiovascular: Reports as per HPI and Reports system reviewed and no additional complaints, except as documented Respiratory Respiratory: Reports as per HPI and Reports system reviewed and no additional complaints, except as documented Gastrointestinal Gastrointestinal: Reports as per HPI and Reports system reviewed and no additional complaints, except as documented Neurologic Neurologic: Denies headache(s) Endocrine Endocrine: Denies fatigue Hematologic/Lymphatic On Anticoagulants: No Patient History Medical History Anemia Brain tumor Congestive heart failure Difficulty swallowing GERD (gastroesophageal reflux disease) Pre-diabetes Shortness of breath Wears partial dentures Surgical History Hx of knee surgery Social History marital status: household members: spouse Smoking Status: Former smoker alcohol intake: current Smoking Status: Former smoker alcohol intake frequency: a few times a week Substance Use Type: does not use Exam Initial Vital Signs Initial Vital Signs: Vital Signs Temperature 97.4 F L 09/12/21 13:44 Pulse Rate 82 09/12/21 13:44 Respiratory Rate 24 09/12/21 13:44 Blood Pressure 130/63 09/12/21 13:44 Pulse Oximetry 94 09/12/21 13:44 Const General: cooperative and healthy appearing HENMT Head: normal to inspection and normocephalic Resp Effort & Inspection: normal respiratory effort Cardio Rate: regular rate Skin General: no rashes or lesions noted Course Orders Ordered: ED Orders 09/12/21 13:45 COVID19 -Nasal swab/Pre-Proc Stat Vital Signs Vital signs: Vital Signs - 8 hr 09/12/21 13:44 Temperature 97.4 F L Pulse Rate 82 Respiratory Rate 24 Blood Pressure 130/63 Pulse Oximetry 94 [facility] - Recheck/Abnormal Lab/Rx Lab Data Labs: Lab Results 09/12/21 Range/Units 13:45 SARS-CoV-2 (PCR) Negative (Negative) [facility] Narrative Medical decision making narrative: Patient is vaccinated, no symptoms, is COVID negative. He was informed of his results. Was given return precautions. He expressed understanding and agreement. Discharge Plan Departure Patient Disposition: Home Clinical Impression: Encounter for laboratory testing for COVID-19 virus Activity Restrictions/Additional Instructions: Your COVID test today was negative. Continue to take all of your medications as directed. Return to the emergency department for any new or worsening symptoms. Prescriptions: No Action furosemide 20 MG tablet 20 mg PO QDAY Qty: 0 0RF atorvastatin 40 mg tablet 40 mg PO DAILY 0RF losartan 50 mg tablet 50 mg PO DAILY 0RF donepezil 10 mg tablet 10 mg PO DAILY 0RF tamsulosin 0.4 mg capsule 0.4 mg PO DAILY 0RF fluoxetine 20 mg capsule 20 mg PO DAILY 0RF omeprazole 20 mg capsule,delayed release(DR/EC) 20 mg PO BID 0RF ferrous sulfate [Feosol] 325 mg (65 mg iron) tablet 325 mg PO DAILY 0RF metformin 500 mg Tablet 1,000 mg PO DAILY 0RF Referrals: Echo Kirby PA-C [Primary Care Provider] -
== END 2021-09-12 14:39 | disposition home or self-care (01) ==
PROVIDERS: Emergency Provider Emergency Medicine; PCP Student in an Organized Health Care Education/Training Program
DX: Z20.822 Contact with and (suspected) exposure to COVID-19 (principal)
CPT/HCPCS: 87635; 99281; C9803

== ENCOUNTER → 2021-11-13 10:59 | Outpatient (CLI) | payer OTHER, SELFPAY ==
--- NOTE | 2021-11-13 11:06 | DI.RAD.S_ITS ---
PROCEDURE: XR CHEST 2V INDICATIONS: DYSPNEA ON EXERTION TECHNIQUE: 2 views of the chest were acquired. COMPARISON: [facility], CR, XR CHEST 1V, 01/12/2020, 20:50. FINDINGS: Surgical changes and devices: None. Lungs and pleura: Lungs are clear. No pleural effusions or pneumothorax. Mediastinum: Heart size is enlarged. There is moderate vascular congestion noted. Bones and chest wall: No suspicious bony abnormalities. Soft tissues appear unremarkable. IMPRESSION: Cardiomegaly and moderate vascular congestion Approved by: Fransico Gavin M.D. on 11/13/2021 at 14:03
== END ==
PROVIDERS: PCP Student in an Organized Health Care Education/Training Program; Referring Provider Internal Medicine; Visit Provider Internal Medicine
DX: R06.00 Dyspnea, unspecified (principal)
CPT/HCPCS: 71046

== ENCOUNTER → 2022-01-09 12:55 | Outpatient (CLI) | payer MEDICARE, SELFPAY ==
[2022-01-09 14:02] LABS: Add Manual Diff / Slide Review NO; Basophils Absolute Auto 100 /uL (0-100); Basophils Percent Auto 0.8 % (0-2); Eosinophils Absolute Auto 200 /uL (0-450); Eosinophils Percent Auto 2.9 % (2-4); Lymphocytes Absolute Auto 1800 /uL (1100-4500); Lymphocytes Percent Auto 25.8 % (25-40); Mean Corpuscular HGB Conc 34.2 % (30-36); Mean Corpuscular Hemoglobin 30.5 PG (26-34); Mean Corpuscular Volume 89.1 fL (80-100); Monocytes Absolute Auto 500 /uL (0-900); Monocytes Percent Auto 7.6 % (3-14); Neutrophils Absolute Auto 4400 /uL (1500-7000); Neutrophils Percent Auto 62.9 % (50-75); Platelet Count 154 X10^3/uL (150-400); Red Cell Distribution Width 15.1 % (11.6-14.8)
[2022-01-09 15:02] LABS: Alanine Aminotransferase 59 IU/L (<50); Albumin 4.4 g/dL (3.5-5.0); Albumin Globulin Ratio 1.3 (1.0-2.8); Alkaline Phosphatase 52 U/L (38-126); Aspartate Aminotransferase 54 IU/L (17-59); BUN Creatinine Ratio 14.9 (6-22); Bilirubin Total 0.6 mg/dL (0.2-1.3); Blood Urea Nitrogen 11 mg/dL (9-20); Calcium 9.4 mg/dL (8.4-10.2); Carbon Dioxide 25 mmol/L (22-32); Chloride 103 mmol/L (98-107); Estimated Glomerular Filt Rate > 60.0 mL/min (>60); Globulin 3.3 g/dL (1.7-4.1); Glucose 213 mg/dL (80-110); HEMOLYSIS 16 (0-50); Potassium 3.9 mmol/L (3.4-5.1); Sodium 141 mmol/L (137-145); Total Protein 7.7 g/dL (6.3-8.2)
[2022-01-09 15:08] LABS: NT-proBNP (BNP-Adult 18+) 257 pg/mL (<450)
== END ==
PROVIDERS: PCP Student in an Organized Health Care Education/Training Program; Referring Provider Student in an Organized Health Care Education/Training Program; Visit Provider Student in an Organized Health Care Education/Training Program
DX: R06.00 Dyspnea, unspecified (principal)
CPT/HCPCS: 36415; 80053; 83880; 85025

== ENCOUNTER → 2022-02-27 07:54 | Outpatient (CLI) | payer OTHER, SELFPAY ==
--- NOTE | 2022-02-27 | DI.ECHO.S_ITS ---
[facility]---------+ [facility] +---------+ : : [address] : : : : [id number] : : : : Phone: [phone]+ Echocardiogram Report + + :Name: EUGENIA BRANDON Study Date: 02/27/2022 Height: 69.5 in: :[facility] ReadingLocation: Weight: 245 lb : : Gender: Male BSA: 2.3 m2 : :: 1940 Age: 81 yrs BP: 133/92 mmHg: :Reason For Study: DYSPNEA : :Ordering Physician: ASYA, : :ECHO Performed By: Therese David : :Referring: ECHO SKY : + + Interpretation Summary The ejection fraction is estimated to be 55-60%. Grade II diastolic dysfunction. There is hypokinesis of the distal anterior, distal lateral and distal inferolateral sorensen. The right ventricle is mildly dilated. The right ventricular systolic function is normal. The left atrium is mildly dilated. There is mild mitral regurgitation. There is mild tricuspid regurgitation. PASP is approximately 37 to 42 mmHg. Compared to the prior study dated 05/31/2019, The segmental hypokinesis is new. Result discussed with Echo Sky, ordering provider. Procedure: A two-dimensional transthoracic echocardiogram with color flow and Doppler was performed. The study quality was technically adequate. Comparison is made with the echocardiogram of 05/31/2019. The patient was in sinus rhythm with heart rates between 63-68 bpm during the exam. Left Ventricle: The left ventricle is normal in size and wall thickness. The ejection fraction is estimated to be 55-60%. There is hypokinesis of the distal anterior, distal lateral and distal inferolateral sorensen. Grade II diastolic dysfunction. Right Ventricle: The right ventricle is mildly dilated. The right ventricular systolic function is normal. Atria: The left atrium is mildly dilated. Right atrial size is normal. There is no Doppler evidence for an interatrial shunt. Mitral Valve: The mitral valve is normal in structure and function. There is mild mitral annular calcification. There is mild mitral regurgitation. Aortic Valve: The aortic valve is trileaflet. The aortic valve is slightly calcified. There is no aortic valve stenosis. No aortic regurgitation is present. Tricuspid Valve: The tricuspid valve is normal in structure and function. There is mild tricuspid regurgitation. PASP is approximately 37 to 42 mmHg. Pulmonic Valve: The pulmonic valve is not well visualized. There is no pulmonic valvular regurgitation. Great Vessels: The aortic root is normal size. The dimensions of the ascending aorta are normal. The IVC is of normal diameter and collapses greater than 50% with a sniff. This suggests a low right atrial pressure of 3 mm Hg. Pericardium/ Pleura There is no pericardial effusion. There is no pleural effusion. MMode/2D Measurements & Calculations LVIDd: 5.6 cm LVOT diam: 2.3 cm LVIDs: 3.8 cm Ao root diam: 3.6 cm FS: 32.9 % asc Aorta Diam: 3.4 cm IVSd: 1.1 cm LVPWd: 0.92 cm LV hall. diameter/BSA (cm/m^2): 2.5 LV sys. diameter/BSA (cm/m^2): 1.7 LA A2 area: 26.7 cm2 RA long axis: 7.4 cm LA A4 area: 30.1 cm2 RA area: 25.8 cm2 LA length (vol): 7.4 cm RA vol: 76.2 ml LA vol: 92.4 ml RA : 33.7 ml/m2 LA vol index: 40.8 ml/m2 IVC diam: 1.4 cm RVD1 (basal): 5.0 cm RVD2 (mid): 4.7 cm TAPSE: 3.0 cm Doppler Measurements & Calculations Ao V2 max: 145.3 cm/sec LVOT Max Minesh: 106.1 cm/sec Ao V2 mean: 107.3 cm/sec LV V1 max P.5 mmHg Ao max P.4 mmHg LV V1 VTI: 22.1 cm Ao mean P.9 mmHg STANLEY(I,D): 2.9 cm2 Ao V2 VTI: 31.8 cm STANLEY(V,D): 3.1 cm2 sev ratio: 0.69 STANLEY indexed to BSA (cm^2/m^2): 1.3 MV E max minesh: 88.9 cm/sec TR max minesh: 290.8 cm/sec MV A max minesh: 87.2 cm/sec TR max P.8 mmHg MV E/A: 1.0 PA V2 max: 139.9 cm/sec Med Peak E' Minesh: 6.3 cm/sec PA V2 mean: 98.9 cm/sec E/E' med: 14.1 PA mean P.4 mmHg Lat Peak E' Minesh: 8.9 cm/sec PA pr(Accel): 29.3 mmHg E/E' lat: 10.0 E/e' average: 12.1 MV dec time: 0.28 sec SV(LVOT): 92.5 ml Reading Physician:01:46 PM
== END ==
PROVIDERS: PCP Student in an Organized Health Care Education/Training Program; Referring Provider Student in an Organized Health Care Education/Training Program; Visit Provider Student in an Organized Health Care Education/Training Program
DX: I08.1 Rheumatic disorders of both mitral and tricuspid valves (principal); I50.32 Chronic diastolic (congestive) heart failure; R06.00 Dyspnea, unspecified
CPT/HCPCS: 93306

== ENCOUNTER 2022-12-24 10:36 | Emergency (ER) | payer OTHER, SELFPAY ==
[2022-12-24] VITALS (11 sets, daily range): BP systolic 133–171; BP diastolic 79–93; PULSE 60–70; RESP 16–26; TEMP 36.7; O2SAT 94–97; BMI 35.4
--- NOTE | 2022-12-24 10:50 | DI.RAD.S_ITS ---
PROCEDURE: XR CHEST 1V INDICATIONS: Shortness of breath TECHNIQUE: One view of the chest was acquired. COMPARISON: [facility], CR, XR CHEST 2V, 11/13/2021, 11:01. [facility], CR, XR CHEST 1V, 01/12/2020, 20:50. FINDINGS: Surgical changes and devices: None. Lungs and pleura: Lung volumes are low. Patchy opacities present within both mid and lower lungs. No pleural effusion or pneumothorax. Mediastinum: Cardiac silhouette is enlarged, may be accentuated by low lung volumes. No substantial pulmonary vascular congestion identified. Bones and chest wall: No suspicious bony lesions. Overlying soft tissues appear unremarkable. IMPRESSION: Low lung volumes with bilateral pulmonary opacities. There is likely at least a component of hypoventilatory atelectasis, underlying airspace disease such as pneumonia or edema difficult to exclude. Dictated by: Kolton Kent M.D. on 12/24/2022 at 11:49 Approved by: Kolton Kent M.D. on 12/24/2022 at 11:51
[2022-12-24 11:17] LABS: INR 1.1 (0.9-1.3)
[2022-12-24 11:23] LABS: Alanine Aminotransferase 41 IU/L (<50); Albumin Globulin Ratio 1.2 (1.0-2.8); Alkaline Phosphatase 57 U/L (38-126); Aspartate Aminotransferase 41 IU/L (17-59); BUN Creatinine Ratio 20.8 (6-22); Bilirubin Total 0.6 mg/dL (0.2-1.3); Blood Urea Nitrogen 16 mg/dL (9-20); Calcium 8.9 mg/dL (8.4-10.2); Carbon Dioxide 26 mmol/L (22-32); Chloride 103 mmol/L (98-107); Estimated Glomerular Filt Rate > 60 mL/min (>60); Globulin 3.4 g/dL (1.7-4.1); Glucose 166 mg/dL (80-110); HEMOLYSIS < 15 (0-50); Sodium 138 mmol/L (137-145); Total Protein 7.4 g/dL (6.3-8.2)
[2022-12-24 11:24] LABS: Lactate (Lactic Acid) 1.6 mmol/L (0.7-2.1)
[2022-12-24 11:26] LABS: Add Manual Diff / Slide Review NO; Basophils Absolute Auto 100 /uL (0-100); Basophils Percent Auto 0.6 % (0-2); Eosinophils Absolute Auto 300 /uL (0-450); Hematocrit 36.7 % (41-53); Hemoglobin 11.9 g/dL (13.5-17.5); Lymphocytes Absolute Auto 1800 /uL (1100-4500); Lymphocytes Percent Auto 21.7 % (25-40); Mean Corpuscular HGB Conc 32.4 % (30-36); Mean Corpuscular Volume 86.5 fL (80-100); Monocytes Absolute Auto 600 /uL (0-900); Neutrophils Absolute Auto 5600 /uL (1500-7000); Neutrophils Percent Auto 66.7 % (50-75); Platelet Count 161 X10^3/uL (150-400); Red Blood Cell Count 4.24 X10^6/uL (4.5-5.9); White Blood Cell Count 8.4 X10^3/uL (4.5-11.0)
[2022-12-24 11:30] LABS: COVID19 -Nasal RAPID Negative (Negative)
[2022-12-24 11:34] LABS: NT-proBNP (BNP-Adult 18+) 74 pg/mL (<450); Troponin I < 0.012 ng/mL (0.01-0.034)
--- NOTE | 2022-12-24 12:26 | ED.SOB ---
HPI - SOB/Dyspnea <Zaheer Deluca PA-C - Last Filed: 12/24/22 18:37> General Chief Complaint: Shortness of Breath/Dyspnea Stated Complaint: Emphysema is getting worse/ hard to breathe Time Seen by Provider: 12/24/22 12:11 Source: patient and family Mode of arrival: Ambulatory Limitations: no limitations History of Present Illness HPI Narrative: This is an 82-year-old male presents to the emergency department due to worsening acute on chronic shortness of breath. Patient states that he is history of emphysema which he sees his primary care provider for. He states that he takes to inhaled medications although he has been out of 1 of them. Denies any chest pain, lower extremity edema, nausea, vomiting, fevers, or any other concerning signs or symptoms. Patient has using using his 1 inhaler without significant relief. Related Data Home Medications Medication Instructions Recorded Confirmed furosemide 20 mg tablet 20 mg PO QDAY ##0 06/22/17 11/21/20 atorvastatin 40 mg tablet 40 mg PO DAILY 11/13/20 11/21/20 donepezil 10 mg tablet 10 mg PO DAILY 11/13/20 11/21/20 ferrous sulfate 325 mg (65 mg 325 mg PO DAILY 11/13/20 11/21/20 iron) tablet (Feosol) fluoxetine 20 mg capsule 20 mg PO DAILY 11/13/20 11/21/20 losartan 50 mg tablet 50 mg PO DAILY 11/13/20 11/21/20 omeprazole 20 mg capsule,delayed 20 mg PO BID 11/13/20 11/21/20 release tamsulosin 0.4 mg capsule 0.4 mg PO DAILY 11/13/20 11/21/20 metformin 500 mg tablet 1,000 mg PO DAILY 11/21/20 11/21/20 Previous Rx's Medication Instructions Recorded albuterol sulfate 90 mcg/actuation 2 inh inhalation Q6H PRN shortness 12/24/22 breath activated powder inhaler of breath #1 ea fluticasone propionate 110 2 puff inhalation BID #12 grams 12/24/22 mcg/actuation HFA aerosol inhaler (Flovent HFA) prednisone 20 mg tablet 20 mg PO BID 5 days #10 tabs 12/24/22 Allergies Allergy/AdvReac Type Severity Reaction Status Date / Time No Known Drug Allergies Allergy Verified 11/21/20 13:27 Review of Systems <Zaheer Deluca PA-C - Last Filed: 12/24/22 18:37> Review of Systems Narrative: GENERAL: Denies chills, fatigue, malaise, fever, sweats. HEENT: Denies sinus pain, ear pain, sore throat, difficulty swallowing, dizziness. RESPIRATORY: Reports shortness of breath, denies, cough, wheezing, hemoptysis, sputum. CARDIOVASCULAR: Denies chest pain, palpitations, orthopnea, edema, GASTROINTESTINAL: Denies nausea, vomiting, abdominal pain, diarrhea, constipation, melena. : Denies dysuria, frequency, incontinence, hematuria, urinary retention. MUSCULOSKELETAL: denies weakness, joint pain, or bony pain SKIN: Denies rash, skin lesions, or other NEUROLOGIC: Denies weakness, headache, numbness, change in speech, confusion, seizures, incoordination. PSYCHIATRIC: No concerning psychosocial issues. 12 point review of systems is negative except for those stated above Patient History <Zaheer Deluca PA-C - Last Filed: 12/24/22 18:37> Medical History Anemia Brain tumor Congestive heart failure Difficulty swallowing GERD (gastroesophageal reflux disease) Pre-diabetes Shortness of breath Wears partial dentures Surgical History Hx of knee surgery Social History marital status: household members: spouse Smoking Status: Former smoker alcohol intake: current Smoking Status: Former smoker alcohol intake frequency: a few times a week Substance Use Type: does not use Exam <Zaheer Deluca PA-C - Last Filed: 12/24/22 18:37> Narrative Exam Narrative: GENERAL: Well-developed patient, in mild distress. HEAD: Atraumatic. Normocephalic. EYES: Pupils equal round and reactive. Extraocular motions intact. No scleral icterus. No injection or drainage. ENT: Nose without bleeding, purulent drainage. Throat without erythema, tonsillar hypertrophy or exudate. Airway patent. NECK: Trachea midline. Non tender CARDIOVASCULAR: Regular rate and rhythm without murmurs, gallops, or rubs. RESPIRATORY: Decreased lung sounds inferiorly bilaterally. Breath sounds equal bilaterally. No wheezes, rales, or rhonchi. GASTROINTESTINAL: Abdomen soft, non-tender, nondistended. EXTREMITIES: No edema or joint tenderness. BACK: Nontender without deformity or crepitance. No flank tenderness. NEURO: AOx3. SKIN: No rash or erythema of visible areas Initial Vital Signs Initial Vital Signs: Vital Signs Temperature 98.1 F 12/24/22 10:41 Pulse Rate 65 12/24/22 10:41 Respiratory Rate 18 12/24/22 10:41 Blood Pressure 161/81 H 12/24/22 10:41 Pulse Oximetry 95 12/24/22 10:41 Oxygen Delivery Method Room Air 12/24/22 10:41 <Malaika Louise DO - Last Filed: 12/25/22 14:25> Initial Vital Signs Initial Vital Signs: Vital Signs Temperature 98.1 F 12/24/22 10:41 Pulse Rate 65 12/24/22 10:41 Respiratory Rate 18 12/24/22 10:41 Blood Pressure 161/81 H 12/24/22 10:41 Pulse Oximetry 95 12/24/22 10:41 Oxygen Delivery Method Room Air 12/24/22 10:41 Course <Zaheer Deluca PA-C - Last Filed: 12/24/22 18:37> Orders Ordered: Discontinued Medications Albuterol/Ipratropium (Albuterol/Ipratropium 3 Ml Ampul) 3 ml INH Q1H PRN PRN Reason: Shortness Of Breath Last Admin: 12/24/22 13:13 Dose: 3 ml Documented By: GEORGES Methylprednisolone (Methylprednisolone 125 Mg/2 Ml Vial) 125 mg IV NOW ONE Stop: 12/24/22 12:26 Last Admin: 12/24/22 13:29 Dose: 125 mg Documented By: ASHLIE Vital Signs Vital signs: Vital Signs - 8 hr 12/24/22 10:41 12/24/22 11:11 12/24/22 11:26 Temperature 98.1 F Pulse Rate 65 65 66 Respiratory Rate 18 22 24 Blood Pressure 161/81 H 164/79 H Pulse Oximetry 95 94 95 Oxygen Delivery Method Room Air Room Air 12/24/22 11:30 12/24/22 11:30 12/24/22 12:00 Temperature Pulse Rate 64 Respiratory Rate 23 Blood Pressure 153/83 H 144/87 H Pulse Oximetry 96 Oxygen Delivery Method 12/24/22 12:00 12/24/22 13:25 12/24/22 14:45 Temperature Pulse Rate 65 70 63 Respiratory Rate 24 16 22 Blood Pressure 153/91 H Pulse Oximetry 96 95 97 Oxygen Delivery Method Room Air Room Air 12/24/22 12:30 12/24/22 12:30 12/24/22 13:00 Temperature Pulse Rate 61 Respiratory Rate 23 Blood Pressure 150/85 H 133/80 Pulse Oximetry 96 Oxygen Delivery Method Room Air 12/24/22 13:00 12/24/22 13:30 12/24/22 13:30 Temperature Pulse Rate 61 60 Respiratory Rate 23 Blood Pressure 163/89 H Pulse Oximetry 95 96 Oxygen Delivery Method 12/24/22 14:00 12/24/22 14:00 Temperature Pulse Rate 67 Respiratory Rate 26 H Blood Pressure 171/93 H Pulse Oximetry 95 Oxygen Delivery Method <Malaika Louise, - Last Filed: 12/25/22 14:25> Orders Ordered: Discontinued Medications Albuterol/Ipratropium (Albuterol/Ipratropium 3 Ml Ampul) 3 ml INH Q1H PRN PRN Reason: Shortness Of Breath Last Admin: 12/24/22 13:13 Dose: 3 ml Documented By: GEORGES Methylprednisolone (Methylprednisolone 125 Mg/2 Ml Vial) 125 mg IV NOW ONE Stop: 12/24/22 12:26 Last Admin: 12/24/22 13:29 Dose: 125 mg Documented By: ASHLIE Vital Signs Vital signs: Vital Signs - 8 hr 12/24/22 10:41 12/24/22 11:11 12/24/22 11:26 Temperature 98.1 F Pulse Rate 65 65 66 Respiratory Rate 18 22 24 Blood Pressure 161/81 H 164/79 H Pulse Oximetry 95 94 95 Oxygen Delivery Method Room Air Room Air 12/24/22 11:30 12/24/22 11:30 12/24/22 12:00 Temperature Pulse Rate 64 Respiratory Rate 23 Blood Pressure 153/83 H 144/87 H Pulse Oximetry 96 Oxygen Delivery Method 12/24/22 12:00 12/24/22 13:25 12/24/22 14:45 Temperature Pulse Rate 65 70 63 Respiratory Rate 24 16 22 Blood Pressure 153/91 H Pulse Oximetry 96 95 97 Oxygen Delivery Method Room Air Room Air 12/24/22 12:30 12/24/22 12:30 12/24/22 13:00 Temperature Pulse Rate 61 Respiratory Rate 23 Blood Pressure 150/85 H 133/80 Pulse Oximetry 96 Oxygen Delivery Method Room Air 12/24/22 13:00 12/24/22 13:30 12/24/22 13:30 Temperature Pulse Rate 61 60 Respiratory Rate 23 Blood Pressure 163/89 H Pulse Oximetry 95 96 Oxygen Delivery Method 12/24/22 14:00 12/24/22 14:00 Temperature Pulse Rate 67 Respiratory Rate 26 H Blood Pressure 171/93 H Pulse Oximetry 95 Oxygen Delivery Method MDM - SOB/Dyspnea <Zaheer Deluca PA-C - Last Filed: 12/24/22 18:37> Lab Data 12/24/22 10:59 12/24/22 10:59 Labs: Lab Results 12/24/22 12/24/22 12/24/22 Range/Units 10:59 10:59 10:59 WBC 8.4 (4.5-11.0) X10^3/uL RBC 4.24 L (4.5-5.9) X10^6/uL Hgb 11.9 L (13.5-17.5) g/dL Hct 36.7 L (41-53) % MCV 86.5 (80-100) fL MCH 28.0 (26-34) PG MCHC 32.4 (30-36) % RDW 15.0 H (11.6-14.8) % Plt Count 161 (150-400) X10^3/uL Neut % (Auto) 66.7 (50-75) % Lymph % (Auto) 21.7 L (25-40) % Meriwether % (Auto) 7.0 (3-14) % Eos % (Auto) 4.0 (2-4) % Baso % (Auto) 0.6 (0-2) % Neut # (Auto) 5600 (5629-4732) /uL Lymph # (Auto) 1800 (1968-5399) /uL Meriwether # (Auto) 600 (0-900) /uL Eos # (Auto) 300 (0-450) /uL Baso # (Auto) 100 (0-100) /uL PT 13.0 H (10.1-12.7) SECONDS INR 1.1 (0.9-1.3) Sodium 138 (137-145) mmol/L Potassium 4.0 (3.4-5.1) mmol/L Chloride 103 (98-107) mmol/L Carbon Dioxide 26 (22-32) mmol/L BUN 16 (9-20) mg/dL Creatinine 0.77 (0.66-1.25) mg/dL Estimated GFR > 60 (>60) mL/min BUN/Creatinine Ratio 20.8 (6-22) Glucose 166 H (80-110) mg/dL Lactate (0.7-2.1) mmol/L Calcium 8.9 (8.4-10.2) mg/dL Total Bilirubin 0.6 (0.2-1.3) mg/dL AST 41 (17-59) IU/L ALT 41 (<50) IU/L Alkaline Phosphatase 57 (38-126) U/L Troponin I < 0.012 (0.01-0.034) ng/mL NT-Pro-B Natriuret Pep 74 (<450) pg/mL Total Protein 7.4 (6.3-8.2) g/dL Albumin 4.0 (3.5-5.0) g/dL Globulin 3.4 (1.7-4.1) g/dL Albumin/Globulin Ratio 1.2 (1.0-2.8) SARS-CoV-2 (PCR) (Negative) 12/24/22 12/24/22 Range/Units 10:59 10:59 WBC (4.5-11.0) X10^3/uL RBC (4.5-5.9) X10^6/uL Hgb (13.5-17.5) g/dL Hct (41-53) % MCV (80-100) fL MCH (26-34) PG MCHC (30-36) % RDW (11.6-14.8) % Plt Count (150-400) X10^3/uL Neut % (Auto) (50-75) % Lymph % (Auto) (25-40) % Meriwether % (Auto) (3-14) % Eos % (Auto) (2-4) % Baso % (Auto) (0-2) % Neut # (Auto) (8821-4986) /uL Lymph # (Auto) (6502-8272) /uL Meriwether # (Auto) (0-900) /uL Eos # (Auto) (0-450) /uL Baso # (Auto) (0-100) /uL PT (10.1-12.7) SECONDS INR (0.9-1.3) Sodium (137-145) mmol/L Potassium (3.4-5.1) mmol/L Chloride (98-107) mmol/L Carbon Dioxide (22-32) mmol/L BUN (9-20) mg/dL Creatinine (0.66-1.25) mg/dL Estimated GFR (>60) mL/min BUN/Creatinine Ratio (6-22) Glucose (80-110) mg/dL Lactate 1.6 (0.7-2.1) mmol/L Calcium (8.4-10.2) mg/dL Total Bilirubin (0.2-1.3) mg/dL AST (17-59) IU/L ALT (<50) IU/L Alkaline Phosphatase (38-126) U/L Troponin I (0.01-0.034) ng/mL NT-Pro-B Natriuret Pep (<450) pg/mL Total Protein (6.3-8.2) g/dL Albumin (3.5-5.0) g/dL Globulin (1.7-4.1) g/dL Albumin/Globulin Ratio (1.0-2.8) SARS-CoV-2 (PCR) Negative (Negative) Imaging Data Chest x-ray: Radiologist's Impression: [address] [address] XRay Report Signed Patient: Jordi Mckeon MR#: [id number] : 1940 Acct:[id number] Age/Sex: 82 / M Date of Service: 12/24/22 Loc: ED Accession Number: [id number] ?? Procedure: XR chest 1V Ordering Provider: Malaika Louise D.O. PROCEDURE:? XR CHEST 1V ? INDICATIONS:? Shortness of breath ? TECHNIQUE:? One view of the chest was acquired.? ? COMPARISON:? [facility], CR, XR CHEST 2V, 11/13/2021, 11:01.? [facility], , XR CHEST 1V, 01/12/2020, 20:50. ? FINDINGS:? ? Surgical changes and devices:? None.? ? Lungs and pleura:? Lung volumes are low.? Patchy opacities present within both mid and lower lungs.? No pleural effusion or pneumothorax. ? Mediastinum:? Cardiac silhouette is enlarged, may be accentuated by low lung volumes.? No substantial pulmonary vascular congestion identified. ? Bones and chest wall:? No suspicious bony lesions.? Overlying soft tissues appear unremarkable.? ? IMPRESSION:? Low lung volumes with bilateral pulmonary opacities.? There is likely at least a component of hypoventilatory atelectasis, underlying airspace disease such as pneumonia or edema difficult to exclude. ? ? Dictated by: Kolton Kent M.D. on 12/24/2022 at 11:49 ? ? Approved by: Kolton Kent M.D. on 12/24/2022 at 11:51 ? MDM Narrative Medical decision making narrative: MDM * differential diagnosis includes but not limited to pneumothorax, pneumonia, COPD exacerbation, pulmonary embolism, ACS * Prior records reviewed: Patient has not been here for similar complaints in the past * My lab interpretation: Labwork showed no evidence of leukocytosis, low concern for acute pneumonia. BNP within normal limits, low concern for acute CHF exacerbation. Troponin within normal limits. * My imgaing interpretation: Chest x-ray showed findings suspicious for possible hypoventilatory atelectasis. Did state that a pneumonia can not be excluded but due to the lack of fevers and white blood cells being within normal limits low concern for pneumonia. * Clinical Decision Rules/Scores evaluated: Wells Criteria for PE - 0 * Independent discussions with: None ED Course: Is an 82-year-old male presents to the emergency department with a history of reported emphysema due to worsening shortness of breath. He states he is only been using 1 of his inhalers and suspect this is a mild exacerbation of this. Patient was given Solu-Medrol as well as a breathing treatment here in the emergency department which significantly helped improve his symptoms. Troponin within normal limits and EKG unremarkable. Low concern for ACS. Wells criteria of 0 and low concern for PE. Patient's chest x-ray showed possible hypoventilatory atelectasis and a incentive spirometer was given to the patient. Could not completely rule out pneumonia based on chest x-ray but due to the lack of fevers or other infectious symptoms as well as no evidence of leukocytosis low on the differential. On recheck after the medications were given here in the emergency department patient's symptoms significantly improved. He will be discharged with a short course of prednisone as well as refills of both of his chronic long-term inhaler medications. Strongly recommended follow-up with his primary care provider for further management. Shared Decision Making: Discussed plan with patient who is comfortable with this plan. Social Considerations: None Disposition: Discharged to home <Malaika Louise, DO - Last Filed: 12/25/22 14:25> Lab Data Labs: Lab Results 12/24/22 12/24/22 12/24/22 Range/Units 10:59 10:59 10:59 WBC 8.4 (4.5-11.0) X10^3/uL RBC 4.24 L (4.5-5.9) X10^6/uL Hgb 11.9 L (13.5-17.5) g/dL Hct 36.7 L (41-53) % MCV 86.5 (80-100) fL MCH 28.0 (26-34) PG MCHC 32.4 (30-36) % RDW 15.0 H (11.6-14.8) % Plt Count 161 (150-400) X10^3/uL Neut % (Auto) 66.7 (50-75) % Lymph % (Auto) 21.7 L (25-40) % Meriwether % (Auto) 7.0 (3-14) % Eos % (Auto) 4.0 (2-4) % Baso % (Auto) 0.6 (0-2) % Neut # (Auto) 5600 (7483-2826) /uL Lymph # (Auto) 1800 (5161-9326) /uL Meriwether # (Auto) 600 (0-900) /uL Eos # (Auto) 300 (0-450) /uL Baso # (Auto) 100 (0-100) /uL PT 13.0 H (10.1-12.7) SECONDS INR 1.1 (0.9-1.3) Sodium 138 (137-145) mmol/L Potassium 4.0 (3.4-5.1) mmol/L Chloride 103 (98-107) mmol/L Carbon Dioxide 26 (22-32) mmol/L BUN 16 (9-20) mg/dL Creatinine 0.77 (0.66-1.25) mg/dL Estimated GFR > 60 (>60) mL/min BUN/Creatinine Ratio 20.8 (6-22) Glucose 166 H (80-110) mg/dL Lactate (0.7-2.1) mmol/L Calcium 8.9 (8.4-10.2) mg/dL Total Bilirubin 0.6 (0.2-1.3) mg/dL AST 41 (17-59) IU/L ALT 41 (<50) IU/L Alkaline Phosphatase 57 (38-126) U/L Troponin I < 0.012 (0.01-0.034) ng/mL NT-Pro-B Natriuret Pep 74 (<450) pg/mL Total Protein 7.4 (6.3-8.2) g/dL Albumin 4.0 (3.5-5.0) g/dL Globulin 3.4 (1.7-4.1) g/dL Albumin/Globulin Ratio 1.2 (1.0-2.8) SARS-CoV-2 (PCR) (Negative) 12/24/22 12/24/22 Range/Units 10:59 10:59 WBC (4.5-11.0) X10^3/uL RBC (4.5-5.9) X10^6/uL Hgb (13.5-17.5) g/dL Hct (41-53) % MCV (80-100) fL MCH (26-34) PG MCHC (30-36) % RDW (11.6-14.8) % Plt Count (150-400) X10^3/uL Neut % (Auto) (50-75) % Lymph % (Auto) (25-40) % Meriwether % (Auto) (3-14) % Eos % (Auto) (2-4) % Baso % (Auto) (0-2) % Neut # (Auto) (4182-4751) /uL Lymph # (Auto) (1540-2341) /uL Meriwether # (Auto) (0-900) /uL Eos # (Auto) (0-450) /uL Baso # (Auto) (0-100) /uL PT (10.1-12.7) SECONDS INR (0.9-1.3) Sodium (137-145) mmol/L Potassium (3.4-5.1) mmol/L Chloride (98-107) mmol/L Carbon Dioxide (22-32) mmol/L BUN (9-20) mg/dL Creatinine (0.66-1.25) mg/dL Estimated GFR (>60) mL/min BUN/Creatinine Ratio (6-22) Glucose (80-110) mg/dL Lactate 1.6 (0.7-2.1) mmol/L Calcium (8.4-10.2) mg/dL Total Bilirubin (0.2-1.3) mg/dL AST (17-59) IU/L ALT (<50) IU/L Alkaline Phosphatase (38-126) U/L Troponin I (0.01-0.034) ng/mL NT-Pro-B Natriuret Pep (<450) pg/mL Total Protein (6.3-8.2) g/dL Albumin (3.5-5.0) g/dL Globulin (1.7-4.1) g/dL Albumin/Globulin Ratio (1.0-2.8) SARS-CoV-2 (PCR) Negative (Negative) ECG Data Attestation: I personally reviewed and interpreted this ECG as follows: Prior ECG tracings: available for review Interpretation: Sinus rhythm premature atrial complex, rate of 67 TN 208 QRS of 144 QTC 41. Right bundle-branch. Discharge Plan Departure Patient Disposition: Home Clinical Impression: Acute exacerbation of chronic obstructive pulmonary disease Instructions: DI for Emphysema Activity Restrictions/Additional Instructions: Thank you for coming to the [facility] Emergency Department today. As we discussed I suspect this is an exacerbation of her chronic emphysema. I am glad that we are able to help with the shortness of breath here today. Please use the incentive spirometer as directed to help ?open up? your lungs. There is no evidence of any kind of acute pneumonia and due to your lack of infectious symptoms I do not believe you have a pneumonia. I spoke with your primary care provider's office who gave me the medications names and I have sent refills to your pharmacy. Please take them as prescribed. I hope you feel better soon. Prescriptions: New prednisone 20 mg tablet 20 mg PO BID 5 Days Qty: 10 0RF fluticasone propionate [Flovent HFA] 110 mcg/actuation HFA aerosol inhaler 2 puff inhalation BID Qty: 12 0RF Rx Instructions: administer with spacer albuterol sulfate 90 mcg/actuation aerosol powdr breath activated 2 inh inhalation Q6H PRN (Reason: shortness of breath) Qty: 1 0RF No Action furosemide 20 MG tablet 20 mg PO QDAY Qty: 0 atorvastatin 40 mg tablet 40 mg PO DAILY losartan 50 mg tablet 50 mg PO DAILY donepezil 10 mg tablet 10 mg PO DAILY tamsulosin 0.4 mg capsule 0.4 mg PO DAILY fluoxetine 20 mg capsule 20 mg PO DAILY omeprazole 20 mg capsule,delayed release(DR/EC) 20 mg PO BID ferrous sulfate [Feosol] 325 mg (65 mg iron) tablet 325 mg PO DAILY metformin 500 mg Tablet 1,000 mg PO DAILY Referrals: Echo Kirby, PA-C [Primary Care Provider] - Stand Alone Forms: Patient Portal/API <Malaika Louise DO - Last Filed: 12/25/22 14:25> Cosign ED Attending Marco A Attestation: I was immediately available in the department for consultation. Documentation has been reviewed.
[2022-12-24] MEDS: ALBUTEROL/IPRATROPIUM 3 ML AMPUL INH (13:13)
[2022-12-24] MEDS: methylPREDNISolone 125 MG/2 ML VIAL IV (13:29)
--- NOTE | 2022-12-24 14:30 | PC.NURSE ---
RT doing Incentive Spirometry training.
== END 2022-12-24 14:45 | disposition home or self-care (01) ==
PROVIDERS: Emergency Medicine; Emergency Provider Physician Assistant Medical; PCP Student in an Organized Health Care Education/Training Program
DX: J44.1 Chronic obstructive pulmonary disease with (acute) exacerbation (principal); Z20.822 Contact with and (suspected) exposure to COVID-19
CPT/HCPCS: 36415; 71045; 80053; 83605; 83880; 84484; 85025; 85610; 87635; 93005; 94640; 96374; 99284; C9803; J2930

== ENCOUNTER → 2023-02-05 13:34 | Outpatient (CLI) | payer OTHER, SELFPAY ==
--- NOTE | 2023-02-05 | DI.RAD.S_ITS ---
PROCEDURE: XR SHOULDER LT MIN 2V INDICATIONS: L SHOULDER PAIN TECHNIQUE: 3 views of the shoulder were acquired. COMPARISON: None. FINDINGS: Bones: No fractures or dislocations. No suspicious bony lesions. Mild acromioclavicular and glenohumeral joint degeneration. Visualized ribs appear intact. Soft tissues: No suspicious soft tissue calcifications. IMPRESSION: Mild degenerative joint disease. Dictated by: Mariana Damon M.D. on 02/05/2023 at 17:16 Approved by: Mariana Damon M.D. on 02/07/2023 at 10:20
== END ==
PROVIDERS: PCP Student in an Organized Health Care Education/Training Program; Referring Provider Student in an Organized Health Care Education/Training Program; Visit Provider Student in an Organized Health Care Education/Training Program
DX: M19.012 Primary osteoarthritis, left shoulder (principal); M25.512 Pain in left shoulder
CPT/HCPCS: 73030

== ENCOUNTER → 2023-02-10 12:34 | Outpatient (CLI) | payer OTHER, SELFPAY ==
--- NOTE | 2023-02-10 12:36 | DI.RAD.S_ITS ---
PROCEDURE: XR RIBS BI MIN 4V W CXR1V INDICATIONS: RIB PAIN AFTER FALL TECHNIQUE: 3 views of the bilateral ribs were acquired, along with a single view chest. COMPARISON: None. FINDINGS: Surgical changes and devices: None. Bones and chest wall: No fractures or dislocations. No suspicious bony lesions. Overlying soft tissues appear unremarkable. Lungs and pleura: Heart size within normal limits. There is moderate vascular congestion accentuated by low lung volumes. No pneumothorax Mediastinum: Mediastinal contours appear normal. Heart size is normal. IMPRESSION: No evidence of rib fracture or pneumothorax. Moderate vascular congestion accentuated by low lung volumes Approved by: Fransico Gavin M.D. on 02/10/2023 at 17:25
== END ==
PROVIDERS: PCP Student in an Organized Health Care Education/Training Program; Referring Provider Student in an Organized Health Care Education/Training Program; Visit Provider Student in an Organized Health Care Education/Training Program
DX: R07.81 Pleurodynia (principal)
CPT/HCPCS: 71111

== ENCOUNTER → 2023-05-10 10:26 | Outpatient (CLI) | payer OTHER, SELFPAY ==
--- NOTE | 2023-05-10 | DI.RAD.S_ITS ---
PROCEDURE: FL BARIUM SWALLOW W SPEECH INDICATIONS: Dysphagia COMPARISON: TECHNIQUE: Examination was conducted in conjunction with speech pathology per standard protocol. In the lateral projection, filming was performed of the patient swallowing. AP projection filming may also be performed with patient swallowing. COMPARISON: [facility], , [place] BARIUM SWALLOW W SPEECH, 11/22/2020, 14:53. FINDINGS: Function: The oral preparatory phase appears normal, with proper containment. The subsequent oral propulsive phase, pharyngeal phase, and esophageal phase of swallowing also appear normal with all proffered substances. Laryngotracheal penetration without aspiration. No pathologic vallecular pooling. Morphology: No cricopharyngeal bar is identified. No cervical esophageal webs. No Zenker's diverticulum. No strictures. Hiatal hernia is present IMPRESSION: Laryngotracheal penetration without aspiration. Hiatal hernia is present. Please refer to the dedicated speech therapy swallowing evaluation report which will be independently generated. Dictated by: Jose Nagy M.D. on 05/10/2023 at 12:21 Approved by: Jose Nagy M.D. on 05/10/2023 at 12:25
--- NOTE | 2023-05-10 13:22 | ST.SWALLOW ---
Visit Care Team Role Provider Type Echo Kirby PA-C Attending Provider Physician [facility] Primary Care Provider Referring Provider Specialty: Medical Address: [address] [place] [address], [id number] Email: [email or web address] Modified Barium Swallow Study [employer] Modified Barium Swallow Study Start: 05/10/23 11:48 Freq: Status: Active Protocol: Document 05/10/23 11:48 LNK (Rec: 05/10/23 13:22 LNK [id number]) Modified Barium Swallow Study Total Time Visit Start Time 10:45 Visit Stop Time 11:30 Total Visit Minutes [address] Harley Reason for Referral dysphagia Setting Setting Outpatient Care Patient Information Identification Type Name,Date of Patient History Pt was seen for Modified Barium Swallow Study (MBSS) secondary to frequent coughing with liquids and solids. Pt reported that he feels it is getting worse. Pt has prior history of MBSSs on 07/07/16 and 11/22/20. The results of the MBSS in 2020 indicated minimal to mild oropharyngeal dysphagia characterized by many missing teeth, reduced mastication efficiency and delayed swallow valecullar pooling. Pt's PMH includes GERD, esophageal ulcer, dysphagia, large hiatal hernia , poor dentition. Records indicate that pt was seen in [facility] ED in December 2022 for increasing LYNN. CXR at that time described bilateral low lung volumes, and patchy opacities at mid and lower lungs. Subjective Observations Pt reported that his swallowing and coughing are getting worse. He reported that he still snacks in a recliner. He noted that during meals, he is able to eat anything. He is scheduled for dental extractions and new upper and lower dentures at the end of this week ( e.g., 05/13/23. Pt did report that he chokes on liquids frequently. Pt was familiar to the MBSS procedure . Procedure and instructions were reviewed after which the pt agreed to proceed. Patient Positioning Position View Lat-A/P Imaging Lateral View Textures Administered Trials Presented Mildly Thick Liquid via Spoon (IDDSI 2),Mildly Thick Liquid via Cup (IDDSI 2),Extremely Thick Liquid via Spoon (IDDSI 4),Regular (IDDSI 7) Barium Tablet Yes The IDDSI Framework Protocol: IDDSI.1 Oral Impairment Source: The Modified Barium Swallow Impairment Profile (MBSImP??) Lip Closure No labial escape Tongue Control During Bolus Hold Posterior escape of less than half of bolus Bolus Preparation/Mastication Slow prolonged chewing/mashing with complete re-collection Bolus Transport/Lingual Motion Delayed initiation of tongue motion Oral Residue Trace residue lining oral structures Location Tongue Initiation of Pharyngeal Swallow Bolus head at pyriforms Additional Oral Impairment Observations OME and DKS were observed to be WNL. Pt's dentition consisted of anterior lower teeth and one broken upper tooth. ORAL PHASE: Pt's current mastication pattern is an anterior munching due to location of current dentition. Premature spillage if the bolus head to the valeculla and pyriforms was observed pre swallow across all trials. Pharyngeal Impairment Source: The Modified Barium Swallow Impairment Profile (MBSImP??) Soft Palate Elevation No bolus between soft palate & pharyngeal wall Laryngeal Elevation Part.sup.move.thyroid cart/ part.approx.arytenoids to epiglot.petiole Anterior Hyoid Excursion No anterior movement Epiglottic Movement No inversion Laryngeal Vestibular Closure Incomplete; narrow column air/ contrast in laryngeal vestibule Pharyngeal Stripping Wave Present - diminished Pharyngoesophageal Segment Opening Complete distention & complete duration; no obstruction of flow Tongue Base Retraction Narrow column of contrast/air betwn tongue base & post. pharyngeal wall Pharyngeal Residue Collection of residue within/ on pharyngeal structures Location Diffuse (>3 areas) Additional Pharyngeal Impairment Tongue base weakness Observations negatively impacted Hyolaryngeal elevation. Minimal laryngeal elevation and partial hyoid movement were observed. No epiglottic inversion was noted across all trials. Flash laryngeal penetration x2 indicating incomplete closure of the laryngeal vestibule was observed. No tracheal aspiration was observed. Pooling within the valeculla was apparent across all trials . Residue was observed to flow down the aryepiglottic folds to the pyriforms. Partial posterior pharyngeal wall contractions contributed to reduced bolus control to the PES. In the lateral view of the upper esophagus, retroflow was observed below the level of the folds. A/P View The IDDSI Framework Protocol: IDDSI.1 A/P View Observations Pharyngeal Contraction Unilateral bulging Esophageal Clearance Upright Position Esophageal retention w/ regtrograde flow below pharyngoesoph segment Vocal Fold Function Good Esophageal Function Slowed Clearing,Reverse Peristalsis Additional A-P Observations In AP view, a barium tablet was trialed and observed as it passed through the esophagus. The tablet was noted to stop at mid-chest, requiring several more sips of water to move the tablet. The tablet was then observed to move to the lower esophagus. The pill was again stopped; however, because of the pt's large hiatal hernia, it was unclear if the tablet fully cleared the esophagus or was in the hernia. Clinical Impressions Dysphagia Type Oral,Pharyngeal,Esophageal Findings The pt presented with oropharyngeal dysphagia as well as esophageal dysphagia. Orally, the pt demonstrates poor mastication given his lack of dentition. He is expected to get upper and lower dentures this week. It was recommended that the pt eat a very soft diet as his mouth heals from extractions and he gets used to eating with dentures. As his mouth heals and he becomes accustomed to the dentures, there should be a marked improvement in mastication. Pharyngeally, the pt demonstrates overall weakness of the tongue base and hyolaryngeal elevation and movement, placing to pt at risk for penetration and/or aspiration. Although no aspiration was observed, the pt's reported reclined position (in a recliner) when eating increases his aspiration risk. It should be noted that the [facility] seating is upright at 90 degrees and the pt did not aspirate ( although penetration into the laryngeal area is not uncommon as people age). Relative to the esophageal swallow phase, the pt demonstrated reduced transition through the esophagus of the barium tablet . Pt has a large hiatal hernia (per pt records) and GERD, both of which can complicate slowed esophageal clearance and may contribute to aspiration risk, especially if the pt is reclined during or after eating. Patient Appropriate for Therapy No Recommendations Diet Liquids Order Thin (IDDSI 0) Diet Order Minced & Moist (IDDSI 5) Medication Recommendation As Tolerated,Whole in Carrier, Crushed in Carrier Aspiration Precautions Recommended Precautions Upright at 90 Degrees,Small Bites/Sips,Liquids from Cup Treatment Plan Recommended Referrals GI Consult Therapy Strategy Recommendations Reclined Position,Small Bites and Sips,Alternate Liquids/ Solids Additional Recommendations/Comments Pt may benefit from ST, however a GI referral assessment is indicated first. Pt's GERD and hiatal hernia appear to be the greatest contributors to the pt's aspiration risk. Base of tongue exercises have been recommended before but the pt has not demonstrated interest in ST services in the past.
== END ==
PROVIDERS: PCP Student in an Organized Health Care Education/Training Program; Referring Provider Student in an Organized Health Care Education/Training Program; Visit Provider Student in an Organized Health Care Education/Training Program
DX: R13.10 Dysphagia, unspecified (principal); K44.9 Diaphragmatic hernia without obstruction or gangrene
CPT/HCPCS: 74230; 92611

== ENCOUNTER 2023-09-09 08:55 | Emergency (ER) | payer OTHER, SELFPAY ==
[2023-09-09] VITALS (16 sets, daily range): BP systolic 146–176; BP diastolic 79–104; PULSE 67–105; RESP 18–34; O2SAT 89–96; BMI 35.4
--- NOTE | 2023-09-09 09:13 | ED_ITS ---
HPI - SOB/Dyspnea General Chief Complaint: Shortness of Breath/Dyspnea Stated Complaint: SOB, Cough Time Seen by Provider: 09/09/23 09:00 Source: patient, EMS, RN notes reviewed and old records reviewed Mode of arrival: EMS Limitations: no limitations History of Present Illness HPI Narrative: 83-year-old male former smoker with COPD, history of hypertension, dyslipidemia, BPH and mild memory issues who presents with complaint of shortness of breath. Patient states has been increasing over the past 1-2 weeks. He is had increasing dyspnea with exertion. He states he has not really had increasing swelling of his lower extremities. He states he does not normally have a lot of swelling. Denies fevers or chills. Denies any chest pain or pressure. States he is has a chronic cough, normally has some productive sputum but no change in coloration. No hemoptysis. Patient states no nausea no vomiting. No diaphoresis. No issues with bowel movements or urination. Patient states he does use albuterol daily. He does not believe that he has a steroid inhaler. Patient presents today as he states his difficulty with breathing but has been decreasing. He was found to be 88-90% with EMS, had a DuoNeb EN route he states that was very helpful. He denies any prior cardiac interventions. Prior history of tobacco abuse, 3 alcoholic drinks weekly, no marijuana or other street drugs. Follows with the PA locally in [place]. Does not follow up with Cardiology or pulmonology. Patient states he does not use any home O2. He does not recall being told that his oxygen runs low. He does live independently with his . Related Data Home Medications Medication Instructions Recorded Confirmed furosemide 20 mg tablet 20 mg PO QDAY ##0 06/22/17 11/21/20 atorvastatin 40 mg tablet 40 mg PO DAILY 11/13/20 11/21/20 donepezil 10 mg tablet 10 mg PO DAILY 11/13/20 11/21/20 ferrous sulfate 325 mg (65 mg 325 mg PO DAILY 11/13/20 11/21/20 iron) tablet (Feosol) fluoxetine 20 mg capsule 20 mg PO DAILY 11/13/20 11/21/20 losartan 50 mg tablet 50 mg PO DAILY 11/13/20 11/21/20 omeprazole 20 mg capsule,delayed 20 mg PO BID 11/13/20 11/21/20 release tamsulosin 0.4 mg capsule 0.4 mg PO DAILY 11/13/20 11/21/20 metformin 500 mg tablet 1,000 mg PO DAILY 11/21/20 11/21/20 Previous Rx's Medication Instructions Recorded albuterol sulfate 90 mcg/actuation 2 inh inhalation Q6H PRN shortness 12/24/22 breath activated powder inhaler of breath #1 ea fluticasone propionate 110 2 puff inhalation BID #12 grams 12/24/22 mcg/actuation HFA aerosol inhaler (Flovent HFA) furosemide 40 mg tablet (Lasix) 40 mg PO DAILY #10 tabs 09/09/23 prednisone 10 mg tablets in a dose See Rx Instructions PO .COMPLEX 09/09/23 pack #15 ea Allergies Allergy/AdvReac Type Severity Reaction Status Date / Time No Known Drug Allergies Allergy Verified 11/21/20 13:27 Review of Systems Review of Systems ROS Unobtainable: All systems reviewed & are unremarkable except as noted in HPI and below Patient History Medical History Wears partial dentures Brain tumor Pre-diabetes Difficulty swallowing Shortness of breath Congestive heart failure Anemia GERD (gastroesophageal reflux disease) Surgical History Hx of knee surgery Social History marital status: household members: spouse Smoking Status: Former smoker alcohol intake: current Smoking Status: Former smoker alcohol intake frequency: a few times a week Substance Use Type: does not use Exam Narrative Exam Narrative: GENERAL: Alert and oriented x three, elderly male in mild distress. Patient was able to stand from the gurney and transfer walking several steps to the bed. HEENT: Head normocephalic, atraumatic, EOMI, pupils reactive, face symmetric, moist mucous membranes NECK: Supple, full range of motion CARDIOVASCULAR: Regular rate and rhythm without murmurs, rubs or gallops. No JVD. Trace edema bilateral lower extremities. RESPIRATORY: Breath sounds equal bilaterally, no wheezes, no rhonchi, no rales appreciated. Patient is slightly decreased in bases. No tachypnea. Patient's speaks almost full sentences. ABDOMEN: Soft, nontender. Normoactive bowel sounds all 4 quadrants. No guarding or rebound, rigidity, no mass : No CVA tenderness EXTREMITIES: Normal range of motion, no clubbing. Neurovascularly intact NEUROLOGICAL: Cranial nerves II through XII grossly intact. Moving all extremities SKIN: Warm, dry, no petechiae, no rashes or lesions. Initial Vital Signs Initial Vital Signs: Vital Signs Pulse Rate 79 09/09/23 09:05 Respiratory Rate 23 09/09/23 09:05 Pulse Oximetry 94 09/09/23 09:05 Course Orders Ordered: ED Orders 09/09/23 09:12 XR chest 1V Stat EKG-12 Lead Stat Measure peak expiratory flow ONCE RT Consult Eval and Treat NOW 09/09/23 09:20 Complete Blood Count AUTO DIFF Stat Comprehensive Metabolic Panel Stat Covid-19 + FLU A/B + RSV - PCR Stat Lactate (Lactic Acid) Stat NT-proBNP (BNP-Adult 18+) Stat Prothrombin Time INR Stat Troponin & CK Cardiac Panel Stat 09/09/23 10:09 CT angio chest PE protocol Stat Discontinued Medications Albuterol/Ipratropium (Albuterol/Ipratropium 3 Ml Ampul) 3 ml INH NOW ONE Stop: 09/09/23 10:10 Last Admin: 09/09/23 10:22 Dose: 3 ml Documented By: ISAC Furosemide (Furosemide 40 Mg/4 Ml Vial) 40 mg IV NOW ONE Stop: 09/09/23 10:11 Last Admin: 09/09/23 10:16 Dose: 40 mg Documented By: JILLIAN Methylprednisolone (Methylprednisolone 125 Mg/2 Ml Vial) 125 mg IV NOW ONE Stop: 09/09/23 09:14 Last Admin: 09/09/23 09:23 Dose: 125 mg Documented By: JILLIAN Ondansetron HCl (Ondansetron 4 Mg/2 Ml Inj) 4 mg IV NOW ONE Stop: 09/09/23 09:59 Last Admin: 09/09/23 10:01 Dose: 4 mg Documented By: JUANA Vital Signs Vital signs: Vital Signs - 8 hr 09/09/23 09:05 09/09/23 09:06 09/09/23 09:06 Pulse Rate 79 78 Respiratory Rate 23 22 Blood Pressure 162/88 H Pulse Oximetry 94 93 Oxygen Delivery Method Oxygen Flow Rate Fraction of Inspired Oxygen 09/09/23 09:07 09/09/23 09:30 09/09/23 09:31 Pulse Rate 73 80 80 Respiratory Rate 26 H 20 Blood Pressure 162/88 H Pulse Oximetry 92 93 94 Oxygen Delivery Method Room Air Oxygen Flow Rate Fraction of Inspired Oxygen 09/09/23 09:31 09/09/23 10:00 09/09/23 10:00 Pulse Rate 80 Respiratory Rate 32 H Blood Pressure 157/92 H 171/104 H Pulse Oximetry 89 L Oxygen Delivery Method Oxygen Flow Rate Fraction of Inspired Oxygen 09/09/23 10:17 09/09/23 10:22 09/09/23 10:22 Pulse Rate 67 77 Respiratory Rate 22 18 Blood Pressure 148/79 H Pulse Oximetry 94 96 96 Oxygen Delivery Method Nasal Cannula Nasal Cannula Nasal Cannula Oxygen Flow Rate 3 3 2 Fraction of Inspired Oxygen 28 09/09/23 10:22 09/09/23 10:22 09/09/23 10:30 Pulse Rate 69 68 Respiratory Rate 20 24 Blood Pressure 148/79 H Pulse Oximetry 95 94 Oxygen Delivery Method Oxygen Flow Rate Fraction of Inspired Oxygen 09/09/23 10:46 09/09/23 10:46 09/09/23 11:00 Pulse Rate 81 78 Respiratory Rate 25 H 24 Blood Pressure 176/90 H Pulse Oximetry 96 95 Oxygen Delivery Method Nasal Cannula Oxygen Flow Rate 3 Fraction of Inspired Oxygen 09/09/23 11:01 09/09/23 11:01 09/09/23 11:30 Pulse Rate 85 84 Respiratory Rate 34 H 31 H Blood Pressure 162/79 H Pulse Oximetry 95 90 L Oxygen Delivery Method Nasal Cannula Oxygen Flow Rate 3 Fraction of Inspired Oxygen 09/09/23 11:31 09/09/23 11:31 09/09/23 12:00 Pulse Rate 85 105 H Respiratory Rate 25 H Blood Pressure 166/98 H Pulse Oximetry 90 L 90 L Oxygen Delivery Method Oxygen Flow Rate Fraction of Inspired Oxygen 09/09/23 12:54 Pulse Rate 88 Respiratory Rate 18 Blood Pressure 146/90 H Pulse Oximetry 93 Oxygen Delivery Method Room Air Oxygen Flow Rate Fraction of Inspired Oxygen MDM - SOB/Dyspnea Lab Data 09/09/23 09:20 09/09/23 09:20 Labs: Lab Results 09/09/23 Range/Units 09:20 WBC 9.7 (4.5-11.0) X10^3/uL RBC 4.28 L (4.5-5.9) X10^6/uL Hgb 12.2 L (13.5-17.5) g/dL Hct 37.2 L (41-53) % MCV 87.0 (80-100) fL MCH 28.4 (26-34) PG MCHC 32.7 (30-36) % RDW 15.2 H (11.6-14.8) % Plt Count 147 L (150-400) X10^3/uL Neut % (Auto) 72.9 (50-75) % Lymph % (Auto) 16.5 L (25-40) % [place] % (Auto) 6.7 (3-14) % Eos % (Auto) 3.4 (2-4) % Baso % (Auto) 0.5 (0-2) % Neut # (Auto) 7100 H (7819-1787) /uL Lymph # (Auto) 1600 (5148-3147) /uL [place] # (Auto) 700 (0-900) /uL Eos # (Auto) 300 (0-450) /uL Baso # (Auto) 100 (0-100) /uL PT 13.2 H (9.4-12.5) SECONDS INR 1.2 (0.9-1.3) Sodium 139 (137-145) mmol/L Potassium 4.0 (3.4-5.1) mmol/L Chloride 105 (98-107) mmol/L Carbon Dioxide 24 (22-32) mmol/L BUN 16 (9-20) mg/dL Creatinine 0.69 (0.66-1.25) mg/dL Estimated GFR > 60 (>60) mL/min BUN/Creatinine Ratio 23.2 H (6-22) Glucose 136 H (80-110) mg/dL Lactate 1.3 (0.7-2.1) mmol/L Calcium 9.9 (8.4-10.2) mg/dL Total Bilirubin 1.0 (0.2-1.3) mg/dL AST 32 (17-59) IU/L ALT 35 (<50) IU/L Alkaline Phosphatase 56 (38-126) U/L Total Creatine Kinase 192 H (55-170) U/L Troponin I < 0.012 (0.01-0.034) ng/mL NT-Pro-B Natriuret Pep 1020 H (<450) pg/mL Total Protein 7.6 (6.3-8.2) g/dL Albumin 4.2 (3.5-5.0) g/dL Globulin 3.4 (1.7-4.1) g/dL Albumin/Globulin Ratio 1.2 (1.0-2.8) SARS-CoV-2 (PCR) Negative (Negative) Influenza A (RT-PCR) Flu a negative (NEGATIVE) Influenza B (RT-PCR) Flu b negative (NEGATIVE) RSV (PCR) Negative (Negative) Imaging Data Chest x-ray: Radiologist's Impression: Close Chest X-Ray (Signed) RobertoAzael - 09/09/23 Modified Barium Swallow (Signed) Jose Nagy - 05/10/23 Ribs w/Chest X-Ray (Signed) Fransico Gavin - 02/10/23 Shoulder X-Ray (Signed) Mariana Damon - 02/05/23 Chest X-Ray (Signed) Kolton Kent - 12/24/22 Echocardiogram Ultrasound (Signed) Nereyda Lowe - 02/27/22 Chest X-Ray (Signed) Fransico Gavin - 11/13/21 Shoulder X-Ray (Signed) Suzy Jarrett - 07/18/21 Modified Barium Swallow (Signed) Boo Hernandez - 11/22/20 Telemetry Strips 11/21/20 Chest X-Ray (Signed) Aric Ellis - 01/12/20 Abdomen Ultrasound (Signed) Hao Damon - 10/04/19 Echocardiogram Ultrasound (Signed) Sidney Barrera - 05/31/19 Chest X-Ray (Signed) Boo Hernandez - 05/31/19 Launch?Image [address] [address] XRay Report Signed Patient: Jordi Mckeon MR#: [id number] : 1940 Acct:[id number] Age/Sex: 83 / M Date of Service: 09/09/23 Loc: ED Accession Number: [id number] Procedure: XR chest 1V Ordering Provider: Malaika Louise D.O. PROCEDURE: XR CHEST 1V INDICATIONS: Shortness of breath TECHNIQUE: One view of the chest was acquired. COMPARISON: [facility], , XR CHEST 1V, 12/24/2022, 11:06. FINDINGS: Surgical changes and devices: None. Lungs and pleura: There is no mild pulmonary vascular congestion. Mild pulmonary edema is also seen. Superimposed small pulmonary infiltrates cannot be entirely excluded. No pleural effusions or pneumothorax. Mediastinum: Mediastinal contours appear normal. Heart size is enlarged. Bones and chest wall: No suspicious bony lesions. Overlying soft tissues appear unremarkable. IMPRESSION: Finding is suggestive of CHF. Superimposed bilateral interstitial small pulmonary infiltrates cannot be excluded. No pleural effusion or pneumothorax. Dictated by: Azael Mejia M.D. on 09/09/2023 at 9:49 Approved by: Azael Mejia M.D. on 09/09/2023 at 9:51 CTA chest: Radiologist's Impression: [address] [address] [address] Scan Report Signed Patient: Jordi Mckeon MR#: [id number] : 1940 Acct:[id number] Age/Sex: 83 / M Date of Service: 09/09/23 Loc: ED Accession Number: [id number] Procedure: CT angio chest PE protocol Ordering Provider: Malaika Louise D.O. PROCEDURE: CT ANGIO CHEST PE PROTOCOL INDICATIONS: sob, cough, pna vs pe, vs mass TECHNIQUE: After the administration of intravenous contrast, 2 mm thick sections acquired from the pulmonary apices to the posterior costophrenic angles. 3-dimensional maximum intensity projection (MIP) coronal and sagittal reformats were then acquired through the thorax. For radiation dose reduction, the following was used: automated exposure control, adjustment of mA and/or kV according to patient size. COMPARISON: [facility], CR, XR CHEST 1V, 09/09/2023, 9:30. FINDINGS: Image quality: Diagnostic. Pulmonary arteries: Pulmonary arteries are normal in size, and demonstrate no intraluminal filling defects to suggest central pulmonary embolism. Distal subsegmental branches of bilateral pulmonary arteries are suboptimally opacified. Lungs and pleura: Atelectasis are noted in posterior medial bilateral lung bases adjacent to patient's known large hiatal hernia. Mild emphysematous changes are noted in bilateral lung maria. Reticular nodular thickening in periphery of bilateral lung maria are seen suggestive of early interstitial pulmonary fibrosis. Hazy ground-glass opacities also noted bilaterally suggestive of mild pulmonary edema. No definite focal infiltrate. No pleural effusions or pneumothorax. Central and peripheral airways are patent. Mediastinum: Heart size is mildly enlarged, without pericardial effusion. Mildly prominent right paratracheal lymph no measures 1.3 cm in size is seen. Thoracic aorta is normal in caliber and enhancement. There is mild distal esophageal wall thickening with a large hiatal hernia. Bones and chest wall: No suspicious bony lesions. Ribs and thoracic spine appear intact throughout. No axillary or supraclavicular adenopathy. No thyroid nodules which require sonographic follow up, per consensus guidelines area Abdomen: Visualized upper abdominal solid organs appear normal in the early arterial phase of enhancement. IMPRESSION: 1. No central pulmonary emboli. Segment segmental branches of bilateral pulmonary arteries are suboptimally opacified. Distal small pulmonary emboli cannot be excluded. 2. Large hiatal hernia with adjacent bibasilar atelectasis. Questionable thickening of distal esophageal wall, low-grade soft jet is cannot be excluded. 3. Mildly prominent right paratracheal lymph no measures 1.3 cm in size and may represent reactive lymph no. 4. Chronic emphysematous changes and suggestion of interstitial pulmonary fibrosis. Mild pulmonary edema. No focal infiltrate, pleural effusion or pneumothorax. Dictated by: Azael Mejia M.D. on 09/09/2023 at 10:54 Approved by: Azael Mejia M.D. on 09/09/2023 at 11:00 ECG Data Attestation: I personally reviewed and interpreted this ECG as follows: Prior ECG tracings: available for review Interpretation: Sinus rhythm rate of 74 DE 172 QRS of 138 QTC 495, right bundle-branch block. Patient has prior from 12/24/2022 for comparison with no acute changes appears similar. EMS has rhythm strip and the EKG which also shows right bundle-branch with no change. [facility] Narrative Medical decision making narrative: 83-year-old male with history of COPD, symptoms seem somewhat similar to CHF although he notes no orthopnea but increasing dyspnea and difficulty breathing does not appreciate any swelling in his extremities. He has some trace edema but not significant. Does not have any crackles on examination did receive a DuoNeb prior to arrival and had improvement was 88-90% with EMS and is 94% on room air currently. Plan for chest x-ray, EKG labs and respiratory swab for COVID/influenza/RSV: CBC shows no leukocytosis, hemoglobin is 12.2 consistent with prior from December 26 0.9 platelets are slightly low at 147 patient has elevated neutrophils low lymphocytes. INR is negative, renal function, BUN and electrolytes are normal glucose 136- lactate with normal LFTs. Total CK is 192 trope is negative. Patient's BNP is 10 20 was 74 and December of 2022. COVID/influenza RSV negative. Patient given a dose of Solu-Medrol. Patient was tolerating well but when he tries to lay back in the bed or put his legs that becomes quite dyspneic. Was given additional DuoNeb placed back on oxygen he had been weaned off he dropped back down to 88%. BNP is not particularly high but is up compared to prior in December of 2022 so was given a dose of Lasix. Chest x-ray shows possible infiltrate but does have change present on old chest x-rays as well so concerning for possible mass CT chest was obtained. No large central PE, segmental branches are suboptimally opacified, large hiatal hernia with the adjacent bibasilar atelectasis questionable thickening of distal esophageal wall mild distal esophageal wall thickening, patient has prominent right paratracheal lymph node. Chronic emphysematous changes and suggestion of interstitial pulmonary fibrosis. Mild pulmonary edema. Discussed with patient his large hiatal hernia is likely also impacting his breathing likely has some mild CHF and possibly COPD flare that are worsening his breathing. He ranges from 88 to 90 2% on room air. When he puts his legs up it is significantly more short of breath but does not desat further. When his legs are down he feels much more comfortable. Discussed with patient could put him in for hospitalization, he is very reluctant to do so his is at home with a prior stroke he has home health care for her but he states he needs to return home to be with her. Did offer to have social work meet with him for alternative options. He defers this and would much prefer to return. We will see if RT can set him home with home O2 but even if we can not he does not wish to stay at this time. Discussed will cover him with Lasix, short course of steroids can continue to use his inhalers at home. Discussed with patient he might benefit from surgery for his hiatal hernia but he is older. Would typically be referred to a larger facility not required to be done today or requiring emergent transfer today. Unable to get home O2 for patient. He does drop to 84% with exertion. He typically is 88-92% on room air. He will follow up with primary care to see about home O2. We will give him scripts for diuresis and COPD, did discuss follow up for potential surgery. Discussed with patient if he has worsening symptoms or would like to return at any time he is welcome too. He expresses understanding. All questions answered. Discharge Plan Departure Patient Disposition: Left Against Medical Advice Clinical Impression: Acute CHF (congestive heart failure), COPD exacerbation, Large hiatal hernia Activity Restrictions/Additional Instructions: You appear to have some fluid overload and congestive heart failure impacting her breathing today. You may be having a little bit of exacerbation of your emphysema. It is also noted on your imaging that you have a large hiatal hernia your stomach is up in your chest behind your heart this takes up space and makes it additionally hard for you to breathe particularly when you lay back or put your legs up. I would like to keep you overnight for observation you were requiring oxygen you dropped to 84% with exertion. I am unable to set you up with home O2 today. Talk with your physician and they can order this for you as an outpatient. Take Lasix once daily until completed. You had a dose today can take your next dose tomorrow. Take steroids as prescribed until gone. Continue to use your inhalers at home regularly. Continue your other home medications as prescribed. Prescription sent [facility]. Please return for new or worsening chest pain, shortness of breath, lightheadedness or passing out, increasing swelling of your legs or other new or concerning changes. Prescriptions: New furosemide [Lasix] 40 mg tablet 40 mg PO DAILY Qty: 10 0RF prednisone 10 mg tablets,dose pack See Rx Instructions .ROUTE .COMPLEX Qty: 15 0RF Rx Instructions: Take 5 tablets p.o. x1 day, then 4 tablets p.o. x1 day, then 3 tablets p.o. x1 day, then 2 tablets p.o. x1 day, then 1 tablet p.o. x1 day No Action furosemide 20 MG tablet 20 mg PO QDAY Qty: 0 atorvastatin 40 mg tablet 40 mg PO DAILY losartan 50 mg tablet 50 mg PO DAILY donepezil 10 mg tablet 10 mg PO DAILY tamsulosin 0.4 mg capsule 0.4 mg PO DAILY fluoxetine 20 mg capsule 20 mg PO DAILY omeprazole 20 mg capsule,delayed release(DR/EC) 20 mg PO BID ferrous sulfate [Feosol] 325 mg (65 mg iron) tablet 325 mg PO DAILY metformin 500 mg Tablet 1,000 mg PO DAILY fluticasone propionate [Flovent HFA] 110 mcg/actuation HFA aerosol inhaler 2 puff inhalation BID Qty: 12 0RF Rx Instructions: administer with spacer albuterol sulfate 90 mcg/actuation aerosol powdr breath activated 2 inh inhalation Q6H PRN (Reason: shortness of breath) Qty: 1 0RF Referrals: Echo Kirby PA-C [Primary Care Provider] - Stand Alone Forms: Patient Portal/API
[2023-09-09] MEDS: methylPREDNISolone 125 MG/2 ML VIAL IV (09:23)
[2023-09-09 09:32] LABS: Add Manual Diff / Slide Review NO; Basophils Absolute Auto 100 /uL (0-100); Basophils Percent Auto 0.5 % (0-2); Eosinophils Absolute Auto 300 /uL (0-450); Eosinophils Percent Auto 3.4 % (2-4); Hematocrit 37.2 % (41-53); Hemoglobin 12.2 g/dL (13.5-17.5); Lymphocytes Absolute Auto 1600 /uL (1100-4500); Lymphocytes Percent Auto 16.5 % (25-40); Mean Corpuscular HGB Conc 32.7 % (30-36); Mean Corpuscular Hemoglobin 28.4 PG (26-34); Monocytes Absolute Auto 700 /uL (0-900); Monocytes Percent Auto 6.7 % (3-14); Neutrophils Absolute Auto 7100 /uL (1500-7000); Neutrophils Percent Auto 72.9 % (50-75); Platelet Count 147 X10^3/uL (150-400); Red Blood Cell Count 4.28 X10^6/uL (4.5-5.9); Red Cell Distribution Width 15.2 % (11.6-14.8); White Blood Cell Count 9.7 X10^3/uL (4.5-11.0)
[2023-09-09 09:40] LABS: INR 1.2 (0.9-1.3); Prothrombin Time 13.2 SECONDS (9.4-12.5)
[2023-09-09 09:46] LABS: Creatine Kinase 192 U/L (55-170); Lactate (Lactic Acid) 1.3 mmol/L (0.7-2.1)
[2023-09-09 09:56] LABS: Alanine Aminotransferase 35 IU/L (<50); Albumin 4.2 g/dL (3.5-5.0); Albumin Globulin Ratio 1.2 (1.0-2.8); Alkaline Phosphatase 56 U/L (38-126); Aspartate Aminotransferase 32 IU/L (17-59); BUN Creatinine Ratio 23.2 (6-22); Blood Urea Nitrogen 16 mg/dL (9-20); Calcium 9.9 mg/dL (8.4-10.2); Carbon Dioxide 24 mmol/L (22-32); Chloride 105 mmol/L (98-107); Estimated Glomerular Filt Rate > 60 mL/min (>60); Globulin 3.4 g/dL (1.7-4.1); Glucose 136 mg/dL (80-110); HEMOLYSIS < 15 (0-50); Sodium 139 mmol/L (137-145); Total Protein 7.6 g/dL (6.3-8.2)
[2023-09-09 09:59] LABS: Troponin I < 0.012 ng/mL (0.01-0.034)
[2023-09-09 10:01] LABS: NT-proBNP (BNP-Adult 18+) 1020 pg/mL (<450)
[2023-09-09] MEDS: ONDANSETRON 4 MG/2 ML INJ IV (10:01)
--- NOTE | 2023-09-09 10:09 | DI.CT.S_ITS ---
PROCEDURE: CT ANGIO CHEST PE PROTOCOL INDICATIONS: sob, cough, pna vs pe, vs mass TECHNIQUE: After the administration of intravenous contrast, 2 mm thick sections acquired from the pulmonary apices to the posterior costophrenic angles. 3-dimensional maximum intensity projection (MIP) coronal and sagittal reformats were then acquired through the thorax. For radiation dose reduction, the following was used: automated exposure control, adjustment of mA and/or kV according to patient size. COMPARISON: [facility], CR, XR CHEST 1V, 09/09/2023, 9:30. FINDINGS: Image quality: Diagnostic. Pulmonary arteries: Pulmonary arteries are normal in size, and demonstrate no intraluminal filling defects to suggest central pulmonary embolism. Distal subsegmental branches of bilateral pulmonary arteries are suboptimally opacified. Lungs and pleura: Atelectasis are noted in posterior medial bilateral lung bases adjacent to patient's known large hiatal hernia. Mild emphysematous changes are noted in bilateral lung maria. Reticular nodular thickening in periphery of bilateral lung maria are seen suggestive of early interstitial pulmonary fibrosis. Hazy ground-glass opacities also noted bilaterally suggestive of mild pulmonary edema. No definite focal infiltrate. No pleural effusions or pneumothorax. Central and peripheral airways are patent. Mediastinum: Heart size is mildly enlarged, without pericardial effusion. Mildly prominent right paratracheal lymph no measures 1.3 cm in size is seen. Thoracic aorta is normal in caliber and enhancement. There is mild distal esophageal wall thickening with a large hiatal hernia. Bones and chest wall: No suspicious bony lesions. Ribs and thoracic spine appear intact throughout. No axillary or supraclavicular adenopathy. No thyroid nodules which require sonographic follow up, per consensus guidelines area Abdomen: Visualized upper abdominal solid organs appear normal in the early arterial phase of enhancement. IMPRESSION: 1. No central pulmonary emboli. Segment segmental branches of bilateral pulmonary arteries are suboptimally opacified. Distal small pulmonary emboli cannot be excluded. 2. Large hiatal hernia with adjacent bibasilar atelectasis. Questionable thickening of distal esophageal wall, low-grade soft jet is cannot be excluded. 3. Mildly prominent right paratracheal lymph no measures 1.3 cm in size and may represent reactive lymph no. 4. Chronic emphysematous changes and suggestion of interstitial pulmonary fibrosis. Mild pulmonary edema. No focal infiltrate, pleural effusion or pneumothorax. Dictated by: Azael Mejia M.D. on 09/09/2023 at 10:54 Approved by: Azael Mejia M.D. on 09/09/2023 at 11:00
[2023-09-09 10:12] LABS: Influenza A - CEPHEID Flu A NEGATIVE (NEGATIVE); Influenza B - CEPHEID Flu B NEGATIVE (NEGATIVE); Respiratory Syncytial Virus Negative (Negative)
[2023-09-09 10:15] LABS: COVID-19 CEPHEID 4-PLEX PCR Negative (Negative)
[2023-09-09] MEDS: FUROSEMIDE 40 MG/4 ML VIAL IV (10:16)
[2023-09-09] MEDS: ALBUTEROL/IPRATROPIUM 3 ML AMPUL INH (10:22)
--- NOTE | 2023-09-09 10:23 | PC.NURSE ---
Patient fell asleep and his 02 sat dropped to 88% on RA. He was placed on 3L NC and is now at 96%. He is unable to lay flat without becoming SOB.
--- NOTE | 2023-09-09 12:28 | RT ---
CALLED [facility]UL[facility] TAVERA, AND [facility], FOR HOME O2 SETUP. NO ANSWER ON . DR. BELCHER UPDATED.
--- NOTE | 2023-09-09 12:30 | PC.NURSE ---
patient was assessed by RT Gael. Patient requires oxygen: 1L NC at rest and 3L NC with exertion. 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
== END 2023-09-09 13:01 | disposition left against medical advice (07) ==
PROVIDERS: Emergency Provider Emergency Medicine; PCP Student in an Organized Health Care Education/Training Program
DX: J44.1 Chronic obstructive pulmonary disease with (acute) exacerbation (principal); I50.9 Heart failure, unspecified; K44.9 Diaphragmatic hernia without obstruction or gangrene; I11.0 Hypertensive heart disease with heart failure; Z53.29 Procedure and treatment not carried out because of patient's decision for other reasons; Z87.891 Personal history of nicotine dependence
CPT/HCPCS: 0241U; 36415; 71045; 71275; 80053; 82550; 83605; 83880; 84484; 85025; 85610; 93005; 93010; 94640; 96374; 96375; 99285; J1940; J2405; J2930; Q9967

== ENCOUNTER 2024-01-14 11:56 | Emergency (ER) | payer MEDICARE, SELFPAY ==
[2024-01-14] VITALS (16 sets, daily range): BP systolic 129–160; BP diastolic 64–85; PULSE 68–100; RESP 20–30; TEMP 36.4; O2SAT 91–96; BMI 34.7
--- NOTE | 2024-01-14 12:26 | DI.RAD.S_ITS ---
PROCEDURE: XR CHEST 1V INDICATIONS: Shortness of breath TECHNIQUE: One view of the chest was acquired. COMPARISON: [facility], CR, XR CHEST 1V, 09/09/2023, 9:30. [facility], CR, XR CHEST 1V, 12/24/2022, 11:06. FINDINGS: Surgical changes and devices: None. Lungs and pleura: Lungs are edematous. No pleural effusions or pneumothorax. Mediastinum: Mediastinal contours appear normal. Heart size is mildly enlarged globally. Bones and chest wall: No suspicious bony lesions. Overlying soft tissues appear unremarkable. IMPRESSION: Chronic CHF pattern, possible superimposed acute exacerbation. Dictated by: Boo Hernandez M.D. on 01/14/2024 at 13:55 Approved by: Boo Hernandez M.D. on 01/14/2024 at 13:56
--- NOTE | 2024-01-14 12:37 | ED_ITS ---
HPI - SOB/Dyspnea General Chief Complaint: Shortness of Breath/Dyspnea Stated Complaint: Dry mouth/can't breathe while asleep Time Seen by Provider: 01/14/24 13:11 Source: patient Mode of arrival: Ambulatory Limitations: no limitations History of Present Illness HPI Narrative: Patient 83-year-old male history of memory issues, hypertension dyslipidemia, COPD former smoker presents today with increasing shortness of breath. He reports that he has some orthopnea and dyspnea with exertion. He denies any chest pain no abdominal pain nausea or vomiting. He thinks it has been ongoing for a couple of days mildly worse today. He lives at home with his and her caregiver because she stroke. He has no swelling in his legs. He denies any cough fever or chills. Related Data Home Medications Medication Instructions Recorded Confirmed furosemide 20 mg tablet 20 mg PO QDAY ##0 06/22/17 11/21/20 atorvastatin 40 mg tablet 40 mg PO DAILY 11/13/20 11/21/20 donepezil 10 mg tablet 10 mg PO DAILY 11/13/20 11/21/20 ferrous sulfate 325 mg (65 mg 325 mg PO DAILY 11/13/20 11/21/20 iron) tablet (Feosol) fluoxetine 20 mg capsule 20 mg PO DAILY 11/13/20 11/21/20 losartan 50 mg tablet 50 mg PO DAILY 11/13/20 11/21/20 omeprazole 20 mg capsule,delayed 20 mg PO BID 11/13/20 11/21/20 release tamsulosin 0.4 mg capsule 0.4 mg PO DAILY 11/13/20 11/21/20 metformin 500 mg tablet 1,000 mg PO DAILY 11/21/20 11/21/20 Previous Rx's Medication Instructions Recorded albuterol sulfate 90 mcg/actuation 2 inh inhalation Q6H PRN shortness 12/24/22 breath activated powder inhaler of breath #1 ea fluticasone propionate 110 2 puff inhalation BID #12 grams 12/24/22 mcg/actuation HFA aerosol inhaler (Flovent HFA) furosemide 40 mg tablet (Lasix) 40 mg PO DAILY #10 tabs 09/09/23 prednisone 10 mg tablets in a dose See Rx Instructions PO .COMPLEX 09/09/23 pack #15 ea doxycycline hyclate 100 mg capsule 100 mg PO BID #20 caps 03/29/24 prednisone 20 mg tablet 40 mg (2 x 20 mg) PO DAILY #10 tabs 01/14/24 Allergies Allergy/AdvReac Type Severity Reaction Status Date / Time No Known Drug Allergies Allergy Verified 11/21/20 13:27 Patient History Medical History Wears partial dentures Brain tumor Pre-diabetes Difficulty swallowing Shortness of breath Congestive heart failure Anemia GERD (gastroesophageal reflux disease) Surgical History Hx of knee surgery Social History marital status: household members: spouse Smoking Status: Former smoker alcohol intake: current Smoking Status: Former smoker alcohol intake frequency: a few times a week Substance Use Type: does not use Exam Initial Vital Signs Initial Vital Signs: Vital Signs Temperature 97.5 F L 01/14/24 12:00 Pulse Rate 85 01/14/24 12:00 Respiratory Rate 24 01/14/24 12:00 Blood Pressure 151/78 H 01/14/24 12:00 Pulse Oximetry 94 01/14/24 12:00 Oxygen Delivery Method Room Air 01/14/24 12:00 GENERAL: Alert pleasant 83-year-old male HEENT: Head atraumatic,EOMI, pupils reactive, face symmetric, moist mucous membranes CARDIOVASCULAR: Regular rate and rhythm without murmurs, rubs or gallops. RESPIRATORY: No obvious respiratory distress minimal expiratory wheeze no rales or rhonchi ABDOMEN: Soft, nontender. Normoactive bowel sounds all 4 quadrants. No guarding or rebound. EXTREMITIES: Normal range of motion, no clubbing or edema. Neurovascularly intact NEUROLOGICAL: Alert and oriented x4. SKIN: Warm, dry, no laceration, no petechiae, no rashes or lesions. Course Orders Ordered: ED Orders 01/14/24 12:22 BNP [NT-proBNP (BNP-Adult 18+)] Stat Complete Blood Count AUTO DIFF Stat Comprehensive Metabolic Panel Stat Lactate (Lactic Acid) Stat NT-proBNP (BNP-Adult 18+) Stat Prothrombin Time INR Stat Troponin I Stat 01/14/24 12:23 EKG-12 Lead Stat 01/14/24 12:26 XR chest 1V Stat Measure peak expiratory flow ONCE RT Consult Eval and Treat NOW Discontinued Medications Albuterol/Ipratropium (Albuterol/Ipratropium 3 Ml Ampul) 3 ml INH NOW ONE Stop: 01/14/24 13:48 Last Admin: 01/14/24 14:01 Dose: 3 ml Documented By: BRENDA Methylprednisolone (Methylprednisolone 125 Mg/2 Ml Vial) 125 mg IV NOW ONE Stop: 01/14/24 14:45 Last Admin: 01/14/24 15:03 Dose: 125 mg Documented By: SB Vital Signs Vital signs: Vital Signs - 8 hr 01/14/24 12:00 01/14/24 12:09 01/14/24 12:10 Temperature 97.5 F L Pulse Rate 85 78 Respiratory Rate 24 Blood Pressure 151/78 H 146/78 H Pulse Oximetry 94 93 Oxygen Delivery Method Room Air Oxygen Flow Rate 01/14/24 12:10 01/14/24 12:30 01/14/24 12:32 Temperature Pulse Rate 75 80 Respiratory Rate 30 H Blood Pressure 140/82 Pulse Oximetry 93 93 Oxygen Delivery Method Oxygen Flow Rate 01/14/24 12:32 01/14/24 12:40 01/14/24 12:40 Temperature Pulse Rate 75 80 Respiratory Rate 30 H 25 H Blood Pressure 140/69 Pulse Oximetry 91 93 Oxygen Delivery Method Nasal Cannula Oxygen Flow Rate 1 01/14/24 13:00 01/14/24 13:00 01/14/24 13:30 Temperature Pulse Rate 71 Respiratory Rate 23 Blood Pressure 136/76 146/80 H Pulse Oximetry 95 Oxygen Delivery Method Oxygen Flow Rate 01/14/24 13:30 01/14/24 14:00 01/14/24 14:00 Temperature Pulse Rate 78 75 Respiratory Rate 25 H 29 H Blood Pressure 145/85 H Pulse Oximetry 95 96 Oxygen Delivery Method Nasal Cannula Oxygen Flow Rate 1 01/14/24 14:01 01/14/24 14:29 01/14/24 14:29 Temperature Pulse Rate 68 76 Respiratory Rate 20 25 H Blood Pressure 153/75 H Pulse Oximetry 96 94 Oxygen Delivery Method Nasal Cannula Nasal Cannula Oxygen Flow Rate 1 1 01/14/24 14:30 01/14/24 14:30 01/14/24 15:01 Temperature Pulse Rate 76 100 H Respiratory Rate 22 Blood Pressure 144/77 H Pulse Oximetry 96 Oxygen Delivery Method Nasal Cannula Oxygen Flow Rate 1 01/14/24 15:03 01/14/24 15:03 01/14/24 15:07 Temperature Pulse Rate 81 Respiratory Rate 22 Blood Pressure 160/77 H 141/79 H Pulse Oximetry 95 Oxygen Delivery Method Oxygen Flow Rate 01/14/24 15:07 01/14/24 15:30 01/14/24 15:30 Temperature Pulse Rate 81 78 Respiratory Rate 21 24 Blood Pressure 129/64 Pulse Oximetry 95 96 Oxygen Delivery Method Oxygen Flow Rate MDM - SOB/Dyspnea Lab Data 01/14/24 12:22 01/14/24 12:22 Labs: Lab Results 01/14/24 01/14/24 01/14/24 Range/Units 12:22 12:22 14:35 WBC 7.7 (4.5-11.0) X10^3/uL RBC 3.92 L (4.5-5.9) X10^6/uL Hgb 10.3 L (13.5-17.5) g/dL Hct 32.7 L (41-53) % MCV 83.4 (80-100) fL MCH 26.3 (26-34) PG MCHC 31.5 (30-36) % RDW 19.1 H (11.6-14.8) % Plt Count 169 (150-400) X10^3/uL Neut % (Auto) 70.8 (50-75) % Lymph % (Auto) 18.0 L (25-40) % Griggs % (Auto) 8.0 (3-14) % Eos % (Auto) 2.5 (2-4) % Baso % (Auto) 0.7 (0-2) % Neut # (Auto) 5500 (9549-4485) /uL Lymph # (Auto) 1400 (9078-7544) /uL [place]gs # (Auto) 600 (0-900) /uL Eos # (Auto) 200 (0-450) /uL Baso # (Auto) 100 (0-100) /uL PT 13.1 H (9.4-12.5) SECONDS INR 1.1 (0.9-1.3) Sodium 139 (137-145) mmol/L Potassium 4.1 (3.4-5.1) mmol/L Chloride 107 (98-107) mmol/L Carbon Dioxide 24 (22-32) mmol/L BUN 16 (9-20) mg/dL Creatinine 0.76 (0.66-1.25) mg/dL Estimated GFR > 60 (>60) mL/min BUN/Creatinine Ratio 21.1 (6-22) Glucose 145 H (80-110) mg/dL Lactate 2.2 H 1.9 (0.7-2.1) mmol/L Calcium 9.4 (8.4-10.2) mg/dL Total Bilirubin 0.8 (0.2-1.3) mg/dL AST 35 (17-59) IU/L ALT 26 (<50) IU/L Alkaline Phosphatase 60 (38-126) U/L Troponin I < 0.012 (0.01-0.034) ng/mL NT-Pro-B Natriuret Pep 320 314 (<450) pg/mL Total Protein 7.4 (6.3-8.2) g/dL Albumin 4.1 (3.5-5.0) g/dL Globulin 3.3 (1.7-4.1) g/dL Albumin/Globulin Ratio 1.2 (1.0-2.8) Imaging Data Chest x-ray: Radiologist's Impression: PROCEDURE: XR CHEST 1V INDICATIONS: Shortness of breath TECHNIQUE: One view of the chest was acquired. COMPARISON: [facility], , XR CHEST 1V, 09/09/2023, 9:30. [facility], CR, XR CHEST 1V, 12/24/2022, 11:06. FINDINGS: Surgical changes and devices: None. Lungs and pleura: Lungs are edematous. No pleural effusions or pneumothorax. Mediastinum: Mediastinal contours appear normal. Heart size is mildly enlarged globally. Bones and chest wall: No suspicious bony lesions. Overlying soft tissues appear unremarkable. IMPRESSION: Chronic CHF pattern, possible superimposed acute exacerbation. Dictated by: Boo Hernandez M.D. on 01/14/2024 at 13:55 Approved by: Boo Hernandez M.D. on 01/14/2024 at 13:56 ECG Data Attestation: I personally reviewed and interpreted this ECG as follows: Interpretation: Sinus rhythm rate 70 VT interval 172 QRS 140 QTC 490 right bundle-branch block noted similar to previous EKGs no ischemic changes MDM Narrative Medical decision making narrative: Patient 83-year-old male history of COPD some memory issues presenting today with increasing shortness of breath. He is having orthopnea but questionable how long he has actually been having it says a long time possibly 6 months maybe got worse this week. No fever chills or productive cough. He has no peripheral edema. Blood work has been reviewed: Hemoglobin 10.3 hematocrit 32.7 previously 12.2 and 37.2 in August 2023, sodium 139, potassium 4.1, chloride 107, carbon dioxide 24, BUN 16, creatinine 0.7, glucose 145, lactate 2.2 repeat 1.9 troponin negative BNP 314 Chest x-ray reviewed chronic CHF pattern EKG reviewed above Patient is having increasing shortness of breath he has history of COPD he had 1 episode of congestive heart failure in August that time he had a BNP of 1000. He has not regularly on a diuretic. He does not appear volume overloaded and actually appears euvolemic. Oxygen was 90-93% on room air. He was given albuterol nebulizer and Solu-Medrol which actually seems to have helped. He overall appears comfortable. I would suspect that with history of COPD I suspect that this is more of a COPD exacerbation rather than CHF at this time. Patient reports that he is chronic ongoing lung issues. He also has a large hiatal hernia which was seen on a CT angio from last visit. at bedside reports that the hiatal hernia was evaluated by GI he has not a surgical candidate. He really is having no pain really complaining today of shortness of breath only. Discharge Plan Departure Patient Disposition: Home Clinical Impression: Chronic obstructive pulmonary disease with (acute) exacerbation Instructions: Chronic Obstructive Pulmonary Disease Activity Restrictions/Additional Instructions: *You have been diagnosed with COPD exacerbation *What to do: At this time I suspect that you are likely having COPD exacerbation. Hopefully this medication will make you feel *Continue to take medications as directed--> [facility] Prednisone 40 mg once a day for 5 days Doxycycline 100 mg twice a day 7 days Albuterol inhaler 1-2 puffs every 4 hours if needed for shortness of breath and before bed *Follow up with your primary care provider in 2-3 days or call [phone] *Return to ER if you should have increasing chest pain shortness of breath or any new, worsening or concerning symptoms Prescriptions: New doxycycline hyclate 100 mg capsule 100 mg PO BID Qty: 20 0RF prednisone 20 mg tablet 40 mg PO DAILY Qty: 10 0RF No Action furosemide 20 MG tablet 20 mg PO QDAY Qty: 0 atorvastatin 40 mg tablet 40 mg PO DAILY losartan 50 mg tablet 50 mg PO DAILY donepezil 10 mg tablet 10 mg PO DAILY tamsulosin 0.4 mg capsule 0.4 mg PO DAILY fluoxetine 20 mg capsule 20 mg PO DAILY omeprazole 20 mg capsule,delayed release(DR/EC) 20 mg PO BID ferrous sulfate [Feosol] 325 mg (65 mg iron) tablet 325 mg PO DAILY metformin 500 mg Tablet 1,000 mg PO DAILY fluticasone propionate [Flovent HFA] 110 mcg/actuation HFA aerosol inhaler 2 puff inhalation BID Qty: 12 0RF Rx Instructions: administer with spacer albuterol sulfate 90 mcg/actuation aerosol powdr breath activated 2 inh inhalation Q6H PRN (Reason: shortness of breath) Qty: 1 0RF furosemide [Lasix] 40 mg tablet 40 mg PO DAILY Qty: 10 0RF prednisone 10 mg tablets,dose pack See Rx Instructions .ROUTE .COMPLEX Qty: 15 0RF Rx Instructions: Take 5 tablets p.o. x1 day, then 4 tablets p.o. x1 day, then 3 tablets p.o. x1 day, then 2 tablets p.o. x1 day, then 1 tablet p.o. x1 day Referrals: Echo Kirby PA-C [Primary Care Provider] - Stand Alone Forms: Patient Portal/API
[2024-01-14 12:40] LABS: Add Manual Diff / Slide Review NO; Basophils Absolute Auto 100 /uL (0-100); Basophils Percent Auto 0.7 % (0-2); Eosinophils Absolute Auto 200 /uL (0-450); Eosinophils Percent Auto 2.5 % (2-4); Hematocrit 32.7 % (41-53); Hemoglobin 10.3 g/dL (13.5-17.5); Lymphocytes Absolute Auto 1400 /uL (1100-4500); Mean Corpuscular HGB Conc 31.5 % (30-36); Mean Corpuscular Hemoglobin 26.3 PG (26-34); Mean Corpuscular Volume 83.4 fL (80-100); Monocytes Absolute Auto 600 /uL (0-900); Neutrophils Absolute Auto 5500 /uL (1500-7000); Neutrophils Percent Auto 70.8 % (50-75); Platelet Count 169 X10^3/uL (150-400); Red Blood Cell Count 3.92 X10^6/uL (4.5-5.9); Red Cell Distribution Width 19.1 % (11.6-14.8); White Blood Cell Count 7.7 X10^3/uL (4.5-11.0)
[2024-01-14 12:44] LABS: INR 1.1 (0.9-1.3); Prothrombin Time 13.1 SECONDS (9.4-12.5)
--- NOTE | 2024-01-14 12:44 | PC.NURSE ---
Addendum entered by Dayanna Matute R.N. 01/14/24 12:46: RT called to bedside for eval and treat upon patient arrival. Original Note: Pt friend and caregiver or , Chanell, reports distended abdomen with increased SOB and increased fatigue. She reports he has a hiatal hernia.
[2024-01-14 12:48] LABS: Lactate (Lactic Acid) 2.2 mmol/L (0.7-2.1)
[2024-01-14 12:49] LABS: Alanine Aminotransferase 26 IU/L (<50); Albumin 4.1 g/dL (3.5-5.0); Albumin Globulin Ratio 1.2 (1.0-2.8); Alkaline Phosphatase 60 U/L (38-126); Aspartate Aminotransferase 35 IU/L (17-59); BUN Creatinine Ratio 21.1 (6-22); Bilirubin Total 0.8 mg/dL (0.2-1.3); Blood Urea Nitrogen 16 mg/dL (9-20); Calcium 9.4 mg/dL (8.4-10.2); Carbon Dioxide 24 mmol/L (22-32); Chloride 107 mmol/L (98-107); Estimated Glomerular Filt Rate > 60 mL/min (>60); Globulin 3.3 g/dL (1.7-4.1); Glucose 145 mg/dL (80-110); HEMOLYSIS < 15 (0-50); Potassium 4.1 mmol/L (3.4-5.1); Sodium 139 mmol/L (137-145); Total Protein 7.4 g/dL (6.3-8.2)
[2024-01-14 12:58] LABS: NT-proBNP (BNP-Adult 18+) 314 pg/mL (<450)
[2024-01-14 13:01] LABS: NT-proBNP (BNP-Adult 18+) 320 pg/mL (<450); Troponin I < 0.012 ng/mL (0.01-0.034)
[2024-01-14] MEDS: ALBUTEROL/IPRATROPIUM 3 ML AMPUL INH (14:01)
[2024-01-14 14:10] LABS: Reflexed Lactate in 2 Hours Y
--- NOTE | 2024-01-14 14:37 | RT ---
pt chester cantu tx well, on 1 lpm nc and no distress noted at this time. family at bedside
[2024-01-14 14:52] LABS: Lactate 2HR (Lactic Acid Rflx) 1.9 mmol/L (0.7-2.1)
[2024-01-14] MEDS: methylPREDNISolone 125 MG/2 ML VIAL IV (15:03)
== END 2024-01-14 16:05 | disposition home or self-care (01) ==
PROVIDERS: Emergency Provider Emergency Medicine; PCP Student in an Organized Health Care Education/Training Program
DX: J44.1 Chronic obstructive pulmonary disease with (acute) exacerbation (principal)
CPT/HCPCS: 36415; 71045; 80053; 83605; 83880; 84484; 85025; 85610; 93005; 94640; 96374; 99284; 99285; J2930

== ENCOUNTER → 2024-03-06 13:53 | Outpatient (CLI) | payer MEDICARE, SELFPAY | PROVIDERS: PCP Student in an Organized Health Care Education/Training Program; Referring Provider Internal Medicine Critical Care Medicine; Visit Provider Internal Medicine Critical Care Medicine | DX: R06.09 Other forms of dyspnea (principal); Z87.891 Personal history of nicotine dependence; R94.2 Abnormal results of pulmonary function studies | CPT/HCPCS: 94060; 94726; 94729 ==